=== PATIENT | male | born 2005 | race Caucasian/White ===

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

== ENCOUNTER → 2025-04-23 | Outpatient (CLI) | payer OTHER, SELFPAY ==
--- OUTSIDE RECORDS SUMMARY | 2025-04-23 16:28 | XMS RPT_ITS | CCD ---
Author Organization [facility] Care Team Providers Care Sales And In Home Delivery Specialist Name Role Phone Ziyad Farr MD Primary Care Provider Diego Albarado Attending Unavailable Ziyad Farr Referring Unavailable Ziyad Farr Primary Care Unavailable Keshawn Shay Attending Unavailable Ziyad Farr Referring Unavailable Ziyad Farr Primary Care Unavailable Ziyad Farr MD Primary Care Provider [phone] ZIYAD FARR Attending Unavailable ZIYAD FARR Primary Care Unavailable ZIYAD FARR Attending Unavailable ZIYAD FARR Primary Care Unavailable ZIYAD FARR Attending Unavailable ZIYAD FARR Primary Care Unavailable Allergies Allergy Classification Reported Allergen(s) Allergy Type Date of Onset Reaction(s) Facility (6 sources) Cat; Translations: [CATS] Allergy to substance 11-17-201 0 Unknown [facility] (6 sources) Dog; Translations: [DOGS] Allergy to substance 11-17-201 0 Unknown [facility] (6 sources) Dust; Translations: [DUST] Allergy to substance 11-05-201 0 Hives [facility] Work Phone: (6 sources) House dust mite; Translations: [DUST MITES] Allergy to substance 11-05-201 0 Rash [facility] Work Phone: (8 sources) peanut; Translations: [PEANUTS] Propensity to adverse reactions 8 Anaphylaxis [facility] Work Phone: (5 sources) tree nuts [Other] Propensity to adverse reactions 8 [facility] Work Phone: (1 source) Grass pollen Drug allergy (disorder) 4 [facility] (1 source) peanut allergenic extract Drug Allergy 4 [facility] (4 sources) tree nut, unspecified; Translations: [TREE NUT] Drug allergy (disorder) 4 Anaphylaxis [facility] (1 source) animal dander Drug allergy (disorder) 4 [facility] (1 source) OTHER; Translations: [OTHER] Propensity to adverse reactions (disorder) 8 [facility] Repository Medications Current Medications Medication Drug Class(es) Dates Sig (Normalized) Sig (Original) [id number] 200 actuat albuterol 0.09 mg/actuat metered dose inhaler (7 sources) beta2-Adrenergic Agonist Start: 11-23-2021 take 2 puff(s) by inhalation every four hours as needed for wheezing albuterol HFA (PROVENTIL HFA, VENTOLIN HFA) 90 mcg/actuation inhaler Inhale 2 Puffs as instructed every 4 hours as needed for wheezing/shortness of breath. 2 Inhaler 11/23/2021 Active Comment on above: Inhale 2 Puffs as in structed every 4 hours as needed for wheezing/shortness of breath. 2 ml dupilumab 150 mg/ml auto-injector (7 sources) Interleukin-4 Receptor alpha Antagonist dupilumab (DUPIXENT PEN) 300 mg/2 mL pen Inject subcutaneously every 2 weeks. Active Comment on above: Inject subcutaneousl y every 2 weeks. [id number] 0.3 ml EPINEPHrine 1 mg/ml auto-injector (10 sources) alpha-Adrenergic Agonist, beta-Adrenergic Agonist, Catecholamine Start: 01-12-2021 End: 01-10-2024 EPINEPHrine (EPIPEN 2-RENATE) 0.3 mg/0.3 mL auto-injector Injected the anterior thigh as directed for symptoms according to the allergy action plan. If used the patient must seek emergency medical care. May repeat a second dose after 5 minutes for failure to respond or worsening symptoms while awaiting EMS. Dispense 2 twin packs with trainers 2 Each 1 01/10/2024 Active Comment on above: Injected the anterio r thigh as directed for symptoms according to the allergy action plan. If used the patient must seek emergency medical care. May repeat a second dose after 5 minutes for failure to respond or worsening symptoms while awaiting EMS. Dispensed 2 twin packs with trainers Problems Active Problems Problem Classification Problem Date Documented Date Episodic/Chronic Administrative/social admission (1 source) Encounter for examination for participation in sport; Translations: [Encounter for examination for participation in sport] Onset: 01-01-2024 Episodic Allergic reactions (8 sources) Atopic dermatitis; Translations: [Atopic dermatitis, unspecified] Onset: 04-22-2006 11-23-2018 Chronic Asthma (7 sources) Mild intermittent asthma; Translations: [Mild intermittent asthma, uncomplicated] Onset: 09-25-2012 03-10-2020 Chronic Attention-deficit, conduct, and disruptive behavior disorders (7 sources) Attention deficit hyperactivity disorder, predominantly inattentive type; Translations: [Attention-deficit hyperactivity disorder, predominantly inattentive type] Onset: 03-10-2020 03-10-2020 Chronic Conditions associated with dizziness or vertigo (1 source) Lightheadedness; Translations: [Dizziness and giddiness] 03-31-2024 Episodic Immunizations and screening for infectious disease (3 sources) Patient encounter status; Translations: [Encounter for immunization] Episodic Other ear and sense organ disorders (1 source) Otalgia, right ear; Translations: [Otalgia, unspecified] 09-10-2023 Episodic Other ear and sense organ disorders (1 source) Impacted cerumen in right ear; Translations: [Impacted cerumen, right ear] 09-10-2023 Episodic Other ear and sense organ disorders (1 source) Excessive cerumen in ear canal ; Translations: [Impacted cerumen, right ear] 09-10-2023 Episodic Other upper respiratory disease (7 sources) Allergic rhinitis; Translations: [Allergic rhinitis, unspecified] Onset: 01-13-2013 01-13-2013 Chronic Other upper respiratory infections (1 source) Acute sinusitis, unspecified; Translations: [Acute sinusitis, unspecified] Onset: 01-01-2024 Episodic Otitis media and related conditions (1 source) Otitis media, unspecified, right ear; Translations: [Otitis media, unspecified, right ear] Onset: 01-01-2024 Episodic Past or Other Problems Problem Classification Problem Date Documented Da te Episodic/Chronic Allergic reactions (16 sources) Allergy to peanut; Translations: [Allergy to peanuts] Onset: 12-29-2011 12-29-2011 Episodic Viral infection (2 sources) Molluscum contagiosum infection; Translations: [Molluscum contagiosum] Onset: 12-28-2011 Resolved: 03-10-2020 03-10-2020 Episodic Results Test Name Value Interpretation Reference Range Chrystal Brown 03-31-2024 CNOV Office Visit (PEDSWS ) NICOLE LEE ([id number]) 5 M Date Time Provider Department 03/31/24 3:00 PM ZIYAD FARR PEDSWS During your visit today, we recorded the following information about you: Temperature Pulse Respiration Blood pressure 97.1 degrees 76/minute 16/minute 118/74 Weight Height 102.3 kg 1.777 m Ziyad Farr MD 03/31/2024 4:02 PM Signed Nicole Lee is an 18-year-old male who presents to the office today with complaints of dizziness that is better described as lightheadedness and not spinning that began on March 22, 2024 after the patient went [place]. He states he was bouncing at the trampoline park and after 2 hours developed nausea and dizziness. He denies any head injury. He denies any symptomatology prior. He denies palpitations or racing heart. The episodes of nausea and dizziness are occurring intermittently each day. He also states that if he stands up quickly he feels lightheaded. Again he denies any episodes of vertigo. No previous prodrome of upper respiratory symptoms or vomiting or diarrhea prior to the onset. He denies polydipsia or polyuria. 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), Inattentive Type PAST MEDICAL HISTORY Diagnosis Date Allergy to peanuts Concussion 12/28/14 Constipation Contact dermatitis and other eczema due to other specified agent Molluscum contagiosum 12/28/2011 PAST SURGICAL HISTORY Procedure Laterality Date CIRCUMCISION PAST SURGICAL HISTORY OF HYPOSPADIAS REPAIR ALLERGIES Allergen Reactions Peanuts Anaphylaxis Tree Nut Anaphylaxis 03/31/24 1508 BP: 118/74 Pulse: 76 Resp: 16 Temp: 36.2 ?C (97.1 ?F) TempSrc: Temporal Weight: 102.3 kg (225 lb 9.6 oz) Height: 177.7 cm (5' 9.96) GENERAL: alert and active in no apparent distress, nontoxic-appearing HEAD: Normocephalic, atraumatic EYES: Steady central gaze without nystagmus. No scleral icterus. Conjunctiva are clear without injection or discharge. EARS: External auditory canals are free of lesions bilaterally. Tympanic membranes are intact bilaterally without evidence of fluid in the middle ear space NOSE/SINUSES : Nares normal without discharge OROPHARYNX:moist mucous membranes NECK: Negative for anterior or posterior cervical adenopathy. CARDIOVASCULAR : Regular Rate and Rhythm without murmurs or clicks, well perfused LUNGS: clear to auscultation, excellent air exchange, resonant to percussion, easy respirations without grunting/flaring/retr acting. MUSCULOSKELETAL: Extremities with FROM and no problems identified. EXTREMITIES: Capillary refill is 1 second. No clubbing, cyanosis, or edema. NEUROLOGICAL : Muscle tone normal and Normal age appropriate gait. Face is symmetric. Facial motion is symmetric. Tongue is midline. Rapid altering movements are smooth in the hands without dysdiadochokinesia. Daitga-sk-ykdz to finger is without dysmetria. Heel-to-toe with normal gait. Normal gait without ataxia. Negative Romberg. SKIN : normal color, no jaundice or rash and Normal skin turgor Latest Ref Rng 03/31/2024 GLUCOSE UA (POCT) Negative mg/dL Negative BILIRUBIN UA (POCT) Negative Negative KETONE UA (POCT) Negative mg/dL Negative SPECIFIC GRAVITY UA (POCT) 1.005 - 1.030 >=1.030 HEMOGLOBIN/BLOOD UA (POCT) Negative Negative PH UA (POCT) 4.5 - 8.0 6.0 PROTEIN UA (POCT) Negative mg/dL Negative UROBILINOGEN UA (POCT) Normal E.U./dL 0.2 NITRITE UA (POCT) Negative Negative LEUKOCYTES UA (POCT) Negative Negative COLOR UA (POCT) Yellow CLARITY UA (POCT) Clear Glucose, Point of Care 74 - 99 mg/dL 88 ECG: Normal sinus rhythm ASSESSMENT/PLAN: 1. Intermittent lightheadedness - ICD9: 780.4, ICD10: R42: The patient probably has a spectrum of benign positional vertigo despite the lack of spinning. His ECG shows normal sinus rhythm (pain because of the complaint of lightheadedness but not true history of vertigo) . He is not hyperglycemic and he has no protein in his urine. Recommend the Devika maneuver 3 times daily to both the right and the left side daily until the patient is symptom-free for 24 hours. Handout describing the maneuver was provided. - GLUCOSE, BLOOD (POC) - UA DIP, URINE (POC) - ECG COMPLETE I spent a total of 30 minutes on the date of the service which included preparing to see the patient, esie-yy-[id number] patient care, completing clinical documentation, obtaining and/or reviewing separately obtained history, performing a medically appropriate examination, counseling and educating the patient/family/caregi abiel, and ordering medications, tests, or procedures. Follow-up prn Ziyad Farr MD [facility] Department o (more content not included)... Normal [facility] ECG COMPLETEon 03-31-2024 ECG COMPLETE Ventricular Rate : 6 2 BPM Atrial Rate : 62 BPM P-R Interval : 160 ms QRS Duration : 100 ms Q-T Interval : 368 ms QTC Calculation(Bazett) : 374 ms Calculated P Redford : 47 degrees Calculated R Redford : 24 degrees Calculated T Redford : 22 degrees NORMAL SINUS RHYTHM Confirmed by fellow CAYLA GOLDMAN MD ([id number]) on 04/01/2024 9:05:19 AM Confirmed by MICHAELLE NANCE MD ([id number]) on 04/01/2024 2:12:48 PM NAME : NICOLE LEE PID : [id number] : 2005 Gender : Male Race : ORD : [id number] Procedure Date : Mar 31 2024 15:36:53 Edit Date : Apr 01 2024 14:13:12 Diagnosis: NORMAL SINUS RHYTHM Confirmed by fellow CAYLA GOLDMAN MD ([id number]) on 04/01/2024 9:05:19 AM Confirmed by MICHAELLE NANCE MD ([id number]) on 04/01/2024 2:12:48 PM Test Reason : R42 Intermittent lightheadedness Location : 144 : WOPED Overread By : MICHAELLE NANCE MD Edited By : MICHAELLE NANCE MD Referred By : md wayne Acquired by : Lexi peterson [facility] GLUCOSE, BLOOD (POC)on 03-31 Glucose [Mass/Vol] 88 mg/dL 74 - 99 mg/dL [facility] Comment on above: [facility] [place] [place], [address] The Accu-Chek Inform II glucose meter has not been approved for testing on patients receiving intensive medical intervention or therapy and results from this point of care glucose test should not be used for patient management decisions in these cases. Inaccurate results may also occur from other interfering factors, such as N-acetylcysteine (blood concentrations of greater than 5mg/dL), galactose, extremes of hematocrit (<10 or >65), or high doses of ascorbic acid (vitamin C) greater than 3mg/dL. Consider alternate testing mechanisms (e.g. core lab, blood gas instrument) in the above situations. [facility] UA DIP, URINE (POC)on 2023 BILIRUBIN UA (POCT) Negative Negative [facility] CLARITY UA (POCT) Clear [facility] COLOR UA (POCT) Yellow [facility] GLUCOSE UA (POCT) Negative Negative mg/dL [facility] Hemoglobin Ql (U) Negative Negative [facility] KETONE UA (POCT) Negative Negative mg/dL [facility] LEUKOCYTES UA (POCT) Negative Negative [facility] NITRITE UA (POCT) Negative Negative [facility] PH UA (POCT) 6.0 4.5 - 8.0 [facility] Protein Ql (U) Negative Negative mg/dL [facility] SPECIFIC GRAVITY UA (POCT) >=1.030 1.005 - 1.030 [facility] UROBILINOGEN UA (POCT) 0.2 Normal E.U./dL [facility] Location:[facility], [place], [address] [facility] POINT OF CARE [facility] CNOVon 01-10-2024 CNOV Office Visit (PEDSWS ) NICOLE LEE ([id number]) 5 M Date Time Provider Department 01/10/24 9:30 AM ZIYAD FARR During your visit today, we recorded the following information about you: Temperature Pulse Respiration Blood pressure 97.4 degrees 64/minute 16/minute 118/72 Weight Height 96 kg 1.78 m Ziyad Farr MD 01/10/2024 10:00 AM Addendum 5 to Go!TM Healthy Kids Inside AND Out 5 Eat FIVE fruits and veggies a day 4 Give and get FOUR compliments a day 3 Consume THREE calcium products a day 2 Limit media time to TWO hours a day 1 Get at least ONE hour of exercise a day 0 Consume ZERO sugar-sweetened drinks Go! Be healthy, inside and out! www.[facility].o rg/5toGo Adolescent to Adult Transition Program [facility] cares about helping you and each of our adolescents and young adults make a smooth transition to adult care. If your current doctor is a carpet floor layer apprentice, we will work with you to decide the correct age for moving your care to a doctor or other provider who takes care of adults. We suggest that this move take place before age 22. Our office policy is to prepare you to move to a doctor or other provider who takes care of adults. This includes helping you find a doctor or other provider, sending medical records, and talking about any special needs with the new doctor or other provider. If your current doctor is in family medicine, [facility] will prepare you and your family for the transition to being an adult patient. You will be able to make your own healthcare decisions and will have an adult care team that meets your personal healthcare needs. At age 18, by law, we need your agreement to discuss personal health information with your family. We understand and respect that you may want to include your family in healthcare choices and will partner with you on how and when to include your family in decisions. We will make sure you know what changes to expect. We will also strive to make sure that all care team providers know your needs. We will help you find community resources and specialty care, if needed. Having your information before you come for the first time helps us be sure we do not miss any details. If joining our practice from outside [facility], we will help you request your medical record from past doctor(s) before your first visit. We will make every effort to work with your past providers to ensure a smooth transition and experience. We are always here for you. If you have any questions or concerns, please contact your primary care team or e-mail [email or web address] Got Transition ? is the federally funded national resource center on health care transition (HCT). Its aim is to improve transition from pediatric to adult health care through the use of evidence-driven strategies for health career services assistant, youth, young adults, and their families. www.gottransition.org https://[employer] .org/resource/?hct-fa jose martin-toolkit 5 to Go!TM Healthy Kids Inside AND Out 5 Eat FIVE fruits and veggies a day 4 Give and get FOUR compliments a day 3 Consume THREE calcium products a day 2 Limit media time to TWO hours a day 1 Get at least ONE hour of exercise a day 0 Consume ZERO sugar-sweetened drinks Go! Be healthy, inside and out! www.[facility].o rg/5toGo Adolescent to Adult Transition Program [facility] cares about helping you and each of our adolescents and young adults make a smooth transition to adult care. If your current doctor is a carpet floor layer apprentice, we will work with you to decide the correct age for moving your care to a doctor or other provider who takes care of adults. We suggest that this move take place before age 22. Our office policy is to prepare you to move to a doctor or other provider who takes care of adults. This includes helping you find a doctor or other provider, sending medical records, and talking about any special needs with the new doctor or other provider. If your current doctor is in family medicine, [facility] will prepare you and your family for the transition to being an adult patient. You will be able to make your own healthcare decisions and will have an adult care team that meets your personal healthcare needs. At age 18, by law, we need your agreement to discuss personal health information with your family. We understand and respect that you may want to include your family in healthcare choices and will partner with you on how and when to include your family in decisions. We will make sure you know what changes to expect. We will also strive to make sure that all care team providers know your needs. We will help you find community resources and specialty care, if needed. Having your information before you come for the first time helps us be sure we do not mis (more content not included)... Normal [facility] Urgent Care Visit Reporton 0 12-24-2023 Urgent Care Visit Report [facility] [address], [address] [place] [address] OFFICE VISIT Date of Service: 12/24/23 MR#: [id number] Acct: [id number] Name: NICOLE LEE Rep #: [id number] : 2005 Provider: FARIBA Nix Age/Sex: 18/M Location: [facility] Status: Signed Intake Vital Signs 09/19/22 17:34 12/24/23 11:02 Height 5 ft 11 in 5 ft 10 in Weight: 213 lb BMI 30.5 BP 138/79 H Blood Pressure Location Lt brachial Position Sitting Respiration 18 Pulse 68 Pulse Source Monitor Temp 97.8 F Temp Source Temporal Pulse Oximetry (%) 97 Oxygen Delivery Method room air Intake 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 Corrected vision was seen withinglast year at [facility] Vision screening done both eyes corrected 20/20 not colorblind PFSH Medical History Gastroenteritis Eczema Seasonal allergies Asthma Family History Other Hypertension Social History Smoking Status: Never smoker HPI HPI Details: NICOLE LEE, is a 18 M who presents to the office today for Office Procedures Physical Exam Coding PE Coding Sports/School Physical: Yes Coding Level of Care Code No Charge Diagnoses Routine sports examination Z02.5 CPT Codes PE Coding - Sports/School Physical: Yes (82390) Assessment and Plan Assessment and Plan (1) Routine sports examination: Status: Acute 12/24/23 1138 Date Diego Tapia Signature: Date (if applicable) CC: Normal [facility] CNOVon 09-10-2023 CNOV Office Visit (PEDSWS ) NICOLE LEE ([id number]) 5 M Date Time Provider Department 09/10/23 9:30 AM ZIYAD FARR PEDSWS During your visit today, we recorded the following information about you: Temperature Pulse Respiration Weight 97.5 degrees 68/minute 16/minute 94.9 kg Ziyad Farr MD 09/11/2023 9:11 PM Signed Nicole Ferro Jesus is a 17-year-old male who presents to the office today with complaints of right otalgia. Patient was seen at an outside urgent care ([facility]) on August 29, 2023. Given a diagnosis of of right otitis media and placed on Augmentin. Patient reports compliance with the medication. Still with complaints of intermittent otalgia. No fevers are present. Patient does have a significant history of allergic rhinitis, food allergy, mild intermittent asthma and eczema treated with Dupixent. He denies active symptoms of seasonal allergic rhinitis at this time. 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), Inattentive Type PAST MEDICAL HISTORY Diagnosis Date Allergy to peanuts Concussion 12/28/14 Constipation Contact dermatitis and other eczema due to other specified agent Molluscum contagiosum 12/28/2011 PAST SURGICAL HISTORY Procedure Laterality Date CIRCUMCISION PAST SURGICAL HISTORY OF HYPOSPADIAS REPAIR ALLERGIES Allergen Reactions Cats Unknown Dogs Unknown Dust Hives Dust Mites Rash Peanuts Tree Nuts [Other] 09/10/23 0933 Pulse: 68 Resp: 16 Temp: 36.4 ?C (97.5 ?F) TempSrc: Temporal Weight: 94.9 kg (209 lb 3.2 oz) Physical examination of the head, neck, external ears, mouth and face fail to demonstrate any significant abnormality or assymetry to critical face to face observation. The salivary glands were normal. Facial motion was intact. NOSE: Examination of the nasal chamber revealed no significant abnormalities of the nasal septum, turbinates or meati with the exception of blue boggy turbinates. The mucosa was healthy and the airway was satisfactory MOUTH: Examination of the mouth included the lips, teeth, gums, hard and soft palate, tongue, floor of the mouth, and buccal mucosa were healthy to inspection and the mucosa was moist. OROPHARYNX: Examination of the oropharynx, including the soft palate, tonsillar fossa and posterior pharyngeal cortez were unremarkable and symmetrical. NECK: Inspection and palpation of the neck revealed no scars, masses crepitation or asymmetries. The thyroid was not palpable and was free of masses. EARS: The left external auditory canal is free of lesions. The left tympanic membrane is intact and the middle ear space is well aerated. Tympanogram: Type A pattern. The right external auditory canal has some cerumen at the superior aspect but I can visualize 90% of the tympanic membrane. It is clear without evidence of fluid in the middle ear space. Tympanogram: Type A pattern. ASSESSMENT/PLAN: 1. Otalgia, right - ICD9: 388.70, ICD10: H92.01 (primary diagnosis) If no significant improvement in the discomfort of the ear in the next 5 days would recommend [id number] Flonase, 2 sprays to each nostril once daily, use for 8 weeks. 2. Impacted cerumen of right ear - ICD9: 380.4, ICD10: H61.21 I spent a total of 25 minutes on the date of the service which included preparing to see the patient, [id number] patient care, completing clinical documentation, obtaining and/or reviewing separately obtained history, performing a medically appropriate examination, counseling and educating the patient/family/caregi abiel, and ordering medications, tests, or procedures. Follow-up prn Ziyad Farr MD [facility] Department of Pediatrics, [facility] Allergies As of Date: 09/10/2023 Noted Allergy Reaction CATS 04/12/2010 16 - Unknown DOGS 04/12/2010 16 - Unknown DUST 03/31/2010 4 - Hives DUST MITES 03/31/2010 2 - Rash PEANUTS 01/12/2008 tree nuts [Other] 01/12/2008 Date Reviewed: 09/10/2023 Reviewed by: Hannah Thompson MA - Fully Assessed Reason for Visit: Recheck Ears [Other] Cmt: R ear - finished amoxicillin prescribed by [facility], still having pain. Primary Visit Diagnosis:Otalgia, right [H92.01] Other Visit Diagnoses:Impacted cerumen of right ear [H61.21] Excessive ear wax, right [H61.21] Order(s):A (more content not included)... Normal [facility] Urgent Care Visit Reporton 0 08-29-2023 Urgent Care Visit Report [facility] [address], [address] [place] [address] OFFICE VISIT Date of Service: 08/29/23 MR#: [id number] Acct: [id number] Name: NICOLE LEE Rep #: [id number] 2 : 2005 Provider: FARIBA Blood Age/Sex: 17/M Location: [facility] Status: Signed Intake Vital Signs 09/19/22 17:34 08/29/23 08:17 Height 5 ft 11 in Weight: 213 lb BMI 29.7 BP 118/72 112/68 Blood Pressure Location Lt brachial Lt brachial Position Sitting Sitting Respiration 16 12 Pulse 69 73 Pulse Source Monitor Monitor Temp 98.4 F 98.3 F Temp Source Temporal Temporal Pulse Oximetry (%) 98 98 Oxygen Delivery Method room air room air Intake Visit Reasons: R EAR PAIN Chief Complaint: Right ear pain Allergies animal dander Allergy (Severe, Verified 08/29/23 08:18) unknown grass pollen Allergy (Severe, Verified 08/29/23 08:18) unknown peanut Allergy (Severe, Verified 08/29/23 08:18) unknown tree nut Allergy (Severe, Verified 08/29/23 08:18) NEEDS FOLLOW-UP [facility] Medical History (Updated 08/29/23 @ 08:44 by Keshawn LINK, PA) Asthma Eczema Gastroenteritis Seasonal allergies Family History Other Hypertension Social History Smoking Status: Never smoker HPI HPI Chief Complaint: Right ear pain Details: NICOLE LEE, is a 17 M who presents to the office today for complaint of right ear pain for the past several days. Patient denies otorrhea or hearing change/loss. No fever, chills, sweats. No cough, shortness of breath or difficulty breathing. No other associated symptoms or alleviating/aggravati ng factors. ROS Const Constitutional: No other (As above) Exam Const General: cooperative and well developed HENCO Head: normal to inspection and atraumatic Ears: hearing grossly normal bilaterally and TM abnormal bulging on the right and erythematous on the right Nose: nasal discharge clear Face and sinus: normal facial exam Mouth: oral mucosae normal Throat: abnormal tonsil bilaterally hypertrophy 1+ Resp Effort Inspection: normal respiratory effort and no audible wheezes Auscultation: Bilateral: Clear to Auscultation Cardio Palpation: normal PMI Rate: regular rate Rhythm: regular rhythm Neuro General: patient alert and CN's II-XI intact bilaterally Psych Appearance: grossly normal Mental Status: mental status grossly normal Coding Level of Care Code Off vis,est,level 3 Diagnoses Acute right otitis media H66.91 Assessment and Plan Assessment and Plan (1) Acute right otitis media: Status: Acute Medications: New amoxicillin-pot clavulanate 875-125 mg 1 TAB PO Q12H 10 days 20 tabs 0RF J01.90 - Acute sinusitis, unspecified Plan Augmentin as prescribed today. Encouraged to get plenty of rest, drink lots of clear liquids, and use Tylenol or Ibuprofen (unless contraindicated) for fever and comfort. Patient also educated on other symptomatic management techniques. To be seen in 7-10 days if no improvement; sooner if worsening of symptoms. Patient advised of potential red flags and when appropriate to report to the ED. Patient verbalized understanding and agreement with all the above. 08/29/23 0844 Date Keshawn Tapia Signature: Date (if applicable) CC: Normal [facility] Vital Signs Date Time Vital Sign Value Performing Clinician Rony obrien 03-31-2024 15:08-0500 Body height 177.7 cm Ziyad Farr MD Work Phone: [facility] 03-31-2024 15:08-0500 Body mass index (BMI) [Percentile] Per age and sex 96.8 % Ziyad Farr MD Work Phone: [facility] 03-31-2024 15:08-0500 Body mass index (BMI) [Ratio] 32.41 kg/m2 Ziyad Farr MD Work Phone: [facility] 03-31-2024 15:08-0500 Body temperature 97.11 [degF] Ziyad Farr MD Work Phone: [facility] 03-31-2024 15:08-0500 Body weight 102.33 kg Ziyad Farr MD Work Phone: [facility] 03-31-2024 15:08-0500 Diastolic blood pressure 74 mm[Hg] Ziyad Farr MD Work Phone: [facility] 03-31-2024 15:08-0500 Heart rate 76 /min Ziyad Farr MD Work Phone: [facility] 03-31-2024 15:08-0500 Respiratory rate 16 /min Ziyad Farr MD Work Phone: [facility] 03-31-2024 15:08-0500 Systolic blood pressure 118 mm[Hg] Ziyad Farr MD Work Phone: [facility] 01-10-2024 09:36-0400 Body height 178 cm Ziyad Farr MD Work Phone: [facility] 01-10-2024 09:36-0400 Body mass index (BMI) [Percentile] Per age and sex 95.73 % Ziyad Farr MD Work Phone: [facility] 01-10-2024 09:36-0400 Body mass index (BMI) [Ratio] 30.29 kg/m2 Ziyad Farr MD Work Phone: [facility] 01-10-2024 09:36-0400 Body temperature 97.39 [degF] Ziyad Farr MD Work Phone: [facility] 01-10-2024 09:36-0400 Body weight 95.98 kg Ziyad Farr MD Work Phone: [facility] 01-10-2024 09:36-0400 Diastolic blood pressure 72 mm[Hg] Ziyad Farr MD Work Phone: [facility] 01-10-2024 09:36-0400 Heart rate 64 /min Ziyad Farr MD Work Phone: [facility] 01-10-2024 09:36-0400 Respiratory rate 16 /min Ziyad Farr MD Work Phone: [facility] 01-10-2024 09:36-0400 Systolic blood pressure 118 mm[Hg] Ziyad Farr MD Work Phone: [facility] 09-10-2023 09:33-0400 Body temperature 97.5 [degF] Ziyad Farr MD Work Phone: [facility] 09-10-2023 09:33-0400 Body weight 94.89 kg Ziyad Farr MD Work Phone: [facility] 09-10-2023 09:33-0400 Heart rate 68 /min Ziyad Farr MD Work Phone: [facility] 09-10-2023 09:33-0400 Respiratory rate 16 /min Ziyad Farr MD Work Phone: [facility] 11-06-2022 10:30-0400 Body height 177.6 cm Ziyad Farr MD Work Phone: [facility] 11-06-2022 10:30-0400 Body mass index (BMI) [Percentile] Per age and sex 97.7 % Ziyad Farr MD Work Phone: [facility] 11-06-2022 10:30-0400 Body temperature 97.2 [degF] Ziyad Farr MD Work Phone: [facility] 11-06-2022 10:30-0400 Body weight 97.25 kg Ziyad Farr MD Work Phone: [facility] 11-06-2022 10:30-0400 Diastolic blood pressure 72 mm[Hg] Ziyad Farr MD Work Phone: [facility] 11-06-2022 10:30-0400 Heart rate 80 /min Ziyad Farr MD Work Phone: [facility] 11-06-2022 10:30-0400 Respiratory rate 16 /min Ziyad Farr MD Work Phone: [facility] 11-06-2022 10:30-0400 Systolic blood pressure 116 mm[Hg] Ziyad Farr MD Work Phone: [facility] 11-23-2021 13:05-0400 Body height 176.2 cm Ziyad Farr MD Work Phone: [facility] 11-23-2021 13:05-0400 Body mass index (BMI) [Percentile] Per age and sex 97.61 % Ziyad Farr MD Work Phone: [facility] 11-23-2021 13:05-0400 Body temperature 98.01 [degF] Ziyad Farr MD Work Phone: [facility] 11-23-2021 13:05-0400 Body weight 93.53 kg Ziyad Farr MD Work Phone: [facility] 11-23-2021 13:05-0400 Diastolic blood pressure 64 mm[Hg] Ziyad Farr MD Work Phone: [facility] 11-23-2021 13:05-0400 Heart rate 72 /min Ziyad Farr MD Work Phone: [facility] 11-23-2021 13:05-0400 Respiratory rate 16 /min Ziyad Farr MD Work Phone: [facility] 11-23-2021 13:05-0400 Systolic blood pressure 108 mm[Hg] Ziyad Farr MD Work Phone: [facility] Encounters Encounter Date Encounter Type Care Provider Facility Start: 03-31-2024 End: 03-31-2024 ambulatory ZIYAD FARR Facility:[facility] Start: 03-31-2024 End: 03-31-2024 Patient encounter procedure Ziyad Farr MD Work Phone: [facility] Comment on above: Intermittent lighthe adedness (Primary Dx) Start: 01-10-2024 End: 01-10-2024 ambulatory ZIYAD FARR Facility:[facility] Start: 01-10-2024 Encounter for routin e child health examination without abnormal findings ZIYAD FARR [facility] Start: 01-10-2024 End: 01-10-2024 Patient encounter procedure Ziyad Farr MD Work Phone: [facility] [place] [facility] Comment on above: Encounter for genera l adult medical examination without abnormal findings (Primary Dx); Encounter for screening for depression; Peanut allergy; Tree nut allergy Start: 01-10-2024 End: 01-10-2024 Patient encounter status Ziyad Farr MD Work Phone: [facility] Work Phone: Start: 12-24-2023 End: 12-24-2023 ambulatory Diego LINK Facility:[facility] Start: 09-10-2023 End: 09-10-2023 ambulatory ZIYAD FARR Facility:[facility] Start: 09-10-2023 End: 09-10-2023 Patient encounter procedure Ziyad Farr MD Work Phone: [facility] [place] Comment on above: Otalgia, right (Prim chencho Dx); Impacted cerumen of right ear; Excessive ear wax, right Start: 08-29-2023 End: 08-29-2023 ambulatory Keshawn LINK Facility:[facility] Start: 11-06-2022 End: 11-06-2022 Patient encounter procedure Ziyad Farr MD Work Phone: [facility] [place] Comment on above: Encounter for routin e child health examination w/o abnormal findings (Primary Dx); Encounter for immunization; Screening for depression Start: 11-06-2022 End: 11-06-2022 Patient encounter status Ziyad Farr MD Work Phone: [facility] [place] Start: 08-24-2022 Telephone encounter Ziyad rowland MD Work Phone: [facility] [place] Comment on above: Referral Information Start: 06-19-2022 Telephone encounter Ziyad rowland MD Work Phone: [facility] Comment on above: Referral Request Start: 11-23-2021 End: 11-23-2021 Patient encounter procedure Ziyad Farr MD Work Phone: [facility] [place] [facility] Comment on above: Encounter for routin e child health examination w/o abnormal findings (Primary Dx) Start: 11-23-2021 End: 11-23-2021 Patient encounter status Ziyad Farr MD Work Phone: [facility] [place] Procedures Date Procedure Procedure Detail Performing Clinician Start: 03-31-2024 Ecg routine ecg w/le ast 12 lds i&r only [facility] Provider Start: 03-31-2024 Urnls dip stick/tabl et rgnt auto w/o microscopy Ziyad Farr MD Work Phone: Start: 03-31-2024 Gluc bld gluc mntr d ev cleared fda spec home use Ziyad Farr MD Work Phone: Start: 01-10-2024 Adult depression screening assessment Ziyad Farr MD Work Phone: Start: 11-06-2022 Menacwy-tt conj vacc serogroups acwy for im use Ziyad Farr MD Work Phone: Start: 11-06-2022 Adult depression screening assessment Ziyad Farr MD Work Phone: Start: 11-23-2021 Adult depression screening assessment Ziyad Farr MD Work Phone: Plan of Treatment Date Care Activity Detail Author Start: 04-19-2027 Urine microalbumin profile [facility] Start: 01-09-2026 Asthma Action Plan Asthma Action Mery n [facility] Start: 03-31-2025 Annual PCP Team Operations Clerk nayana Disease Visit Annual PCP Team Chronic Disease Visit [facility] Start: 01-11-2025 End: 01-11-2025 Patient encounter procedure 01/11/2025 9:30 AM EDT Office Visit [facility] [address] [place], [place] [id number] Ziyad Farr MD [address] [facility] [place] [id number] [facility] [place] Comment on above: 19 [address] [facility] Start: 01-09-2025 Annual PCP Team Operations Clerk nayana Disease Visit Annual PCP Team Chronic Disease Visit [facility] Start: 01-09-2025 Anxiety Screening Anxiety Screening [facility] Start: 01-09-2025 Asthma Control Test Asthma Control T est [facility] Start: 01-09-2025 Depression Screening Depression Scre [facility] Start: 01-26-2024 Covid-19 Vaccine () Covid-19 Vaccine () [facility] Start: 01-26-2024 Influenza vaccination [facility] Start: 11-24-2023 ASTHMA ACTION PLAN ASTHMA ACTION MERY N [facility] Start: 11-14-2023 Anxiety Screening Anxiety Screening [facility] Start: 11-14-2023 Depression Screening Depression Scre [facility] Start: 11-14-2023 [facility] Start: 11-14-2023 HIV screening HIV Screening [facility] Start: 11-07-2023 Adult depression screening assessment DEPRESSION SCREENING [facility] Start: 11-07-2023 ASTHMA CONTROL TEST ASTHMA CONTROL T EST [facility] Start: 01-25-2023 Covid-19 Vaccine ( season) Covid-19 Vaccine () [facility] Start: 01-25-2023 Influenza vaccination INFLUENZ A (Season Ended) [facility] Start: 11-23-2022 Adult depression screening assessment DEPRESSION SCREENING [facility] Start: 11-23-2022 ASTHMA CONTROL TEST ASTHMA CONTROL T EST [facility] Start: 01-25-2022 Influenza vaccination [facility] Start: 2021 Meningococcal B Vacc ine: Consider Based On Risk (1 of 2 - Patient Seeks Protection) Meningococcal B Vaccine: Consider Based On Risk (1 of 2 - Patient Seeks Protection) [facility] Start: 2021 MENINGOCOCCAL CONJUG ATE (2 - 2-dose series) MENINGOCOCCAL CONJUGATE (2 - 2-dose series) [facility] Start: 11-14-2019 PEDS TO ADULT TRANSI TION ANNUAL ASSESSMENT PEDS TO ADULT TRANSITION ANNUAL ASSESSMENT [facility] Start: 11-14-2015 MENINGOCOCCAL B: Consider based on risk (1 of 2 - Risk Bexsero 2-dose series) MENINGOCOCCAL B: Consider based on risk (1 of 2 - Risk Bexsero 2-dose series) [facility] Start: 03-31-2012 VARICELLA (2 of 2 - 2-dose childhood series) VARICELLA (2 of 2 - 2-dose childhood series) [facility] Start: 03-31-2012 Varicella Vaccine (2 of 2 - 2-dose childhood series) Varicella Vaccine (2 of 2 - 2-dose childhood series) [facility] Start: 05-15-2006 COVID-19 VACCINE (#1) COVID-19 VACCI NE (#1) [facility] ECG COMPLETE [facility] Work Phone: Comment on above: Ordered: 03/31/2024 Removal impacted cer umen irrigation/lvg unilat AMBULATORY EAR LAVAGE/IRRIGATION Procedures Routine Excessive ear wax, right Ordered: 09/10/2023 [facility] Work Phone: Comment on above: Ordered: 09/10/2023 Immunizations Immunization Date Immunization Notes Care Provider Hollie navarro 11-06-2022 meningococcal (MenACWY-TT) vaccine, quadrivalent (MENQUADFI) Ziyad Farr MD Work Phone: [facility] 02-19-2018 Human Papillomavirus 9-valent vaccine Ziyad Farr MD Work Phone: [facility] 02-19-2018 influenza, injectabl e, quadrivalent, contains preservative Ziyad Farr MD Work Phone: [facility] 02-19-2018 meningococcal polysaccharide (groups A, C, Y and W-135) diphtheria toxoid conjugate vaccine (MCV4P) Ziyad Farr MD Work Phone: [facility] 02-19-2018 influenza virus vacc ine, unspecified formulation Ziyad Farr MD Work Phone: [facility] 04-19-2017 Human Papillomavirus 9-valent vaccine Ziyad Farr MD Work Phone: [facility] 04-19-2017 tetanus toxoid, redu grecia diphtheria toxoid, and acellular pertussis vaccine, adsorbed Ziyad Farr MD Work Phone: [facility] 03-24-2014 influenza, seasonal, injectable Ziyad Farr MD Work Phone: [facility] Work Phone: 02-23-2012 influenza virus vacc ine, live, attenuated, for intranasal use Ziyad Farr MD Work Phone: [facility] 01-07-2012 varicella virus vaccine Ziyad Farr MD Work Phone: [facility] 12-28-2011 diphtheria, tetanus toxoids and acellular pertussis vaccine Ziyad Farr MD Work Phone: [facility] 12-28-2011 measles, mumps and rubella virus vaccine Ziyad Farr MD Work Phone: [facility] 12-28-2011 poliovirus vaccine, inactivated Ziyad Farr MD Work Phone: [facility] 04-17-2011 influenza virus vacc ine, live, attenuated, for intranasal use Ziyad Farr MD Work Phone: [facility] 05-29-2010 influenza virus vacc ine, live, attenuated, for intranasal use Ziyad Farr MD Work Phone: [facility] 03-16-2009 influenza virus vacc ine, unspecified formulation Ziyad Farr MD Work Phone: [facility] Work Phone: 04-20-2008 influenza virus vacc ine, live, attenuated, for intranasal use Ziyad Farr MD Work Phone: [facility] Work Phone: 03-31-2007 diphtheria, tetanus toxoids and acellular pertussis vaccine Ziyad Farr MD Work Phone: [facility] Work Phone: 03-31-2007 haemophilus influenz ae type b vaccine, HbOC conjugate Ziyad Farr MD Work Phone: [facility] Work Phone: 03-31-2007 influenza virus vacc ine, unspecified formulation Ziyad Farr MD Work Phone: [facility] Work Phone: 12-03-2006 measles, mumps, rube lla, and varicella virus vaccine Ziyad Farr MD Work Phone: [facility] Work Phone: 12-03-2006 pneumococcal conjuga te vaccine, 7 valent Ziyad Farr MD Work Phone: [facility] Work Phone: 06-01-2006 DTaP-hepatitis B and poliovirus vaccine Ziyad Farr MD Work Phone: [facility] Work Phone: 06-01-2006 haemophilus influenz ae type b vaccine, HbOC conjugate Ziyad Farr MD Work Phone: [facility] Work Phone: 06-01-2006 influenza virus vacc ine, unspecified formulation Ziyad Farr MD Work Phone: [facility] Work Phone: 06-01-2006 pneumococcal conjuga te vaccine, 7 valent Ziyad Farr MD Work Phone: [facility] Work Phone: 03-22-2006 DTaP-hepatitis B and poliovirus vaccine Ziyad Farr MD Work Phone: [facility] 03-22-2006 haemophilus influenz ae type b vaccine, HbOC conjugate Ziyad Farr MD Work Phone: [facility] 03-22-2006 pneumococcal conjuga te vaccine, 7 valent Ziyad Farr MD Work Phone: [facility] 01-14-2006 DTaP-hepatitis B and poliovirus vaccine Ziyad Farr MD Work Phone: [facility] 01-14-2006 haemophilus influenz ae type b vaccine, HbOC conjugate Ziyad Farr MD Work Phone: [facility] 01-14-2006 pneumococcal conjuga te vaccine, 7 valent Ziyad Farr MD Work Phone: [facility] 2005 hepatitis B vaccine, pediatric or pediatric/adolescent dosage Ziyad Farr MD Work Phone: [facility] Work Phone: Payers Date Payer Category Payer Self-pay 2022 Unknown MMO MMO [employer] PPO [id number] 2022-Present [phone] [address] [place] [address] PPO [id number] 2022 Unknown [id number] 2022 [facility] [id number] 2022-Present [phone] [address] [place] [address] PPO [id number] 2022 Private Health Insurance [id number] 2019 Unknown MMO MMO [employer] [id number] 2019-Present [address] [place] [address] PPO [id number] Unknown [id number] Unknown [id number] Social History Date Type Detail Facility Start: [facility]12-[facility] Start: 11-23-2021 End: 03-31-2024 Alcohol intake Current non-drinker of alcohol (finding) [facility] Start: 2005 Sex Assigned At Not on file [facility] Start: 2021 End: 11-23-2021 Exposure to SARS-CoV-2 (event) Not sure [facility] Start: 04-12-2011 Tobacco use and exposure Smoke less tobacco non-user [facility] Start: 05-01-2020 End: 09-10-2023 History of Social function [facility] Start: 05-01-2020 End: 09-10-2023 Tobacco use panel [facility] National Score (1-10 0), lower number is lower risk Not on file [facility] Clinical Notes 12-28-2011 to 03-31-2024 Ziyad Farr MD - 03/31/2024 3:54 PM ESTSZiyad michael MD - 01/10/2024 9:32 AM EDTPatient InstructionsStronZiyad fried MD - 09/10/2023 9:45 AM EDTPatient InstructionsPatient Instructions Note Date & Type Note Facility 03-31-2024 Note HNO ID: [id number] Author: ZIYAD FARR MD Service: ? Author Type: Physician Type: Progress Notes Filed: 03/31/2024 16:02 Note Text: Nicole Lee is an 18-year-old male who presents to the office today with complaints of dizziness that is better described as lightheadedness and not spinning that began on March 22, 2024 after the patient went to a [employer] park. He states he was bouncing at the [employer] park and after 2 hours developed nausea and dizziness. He denies any head injury. He denies any symptomatology prior. He denies palpitations or racing heart. The episodes of nausea and dizziness are occurring intermittently each day. He also states that if he stands up quickly he feels lightheaded. Again he denies any episodes of vertigo. No previous prodrome of upper respiratory symptoms or vomiting or diarrhea prior to the onset. He denies polydipsia or polyuria. 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), Inattentive Type PAST MEDICAL HISTORY Diagnosis Date Allergy to peanuts Concussion 12/28/14 Constipation Contact dermatitis and other eczema due to other specified agent Molluscum contagiosum 12/28/2011 PAST SURGICAL HISTORY Procedure Laterality Date CIRCUMCISION PAST SURGICAL HISTORY OF HYPOSPADIAS REPAIR ALLERGIES Allergen Reactions Peanuts Anaphylaxis Tree Nut Anaphylaxis 03/31/24 1508 BP: 118/74 Pulse: 76 Resp: 16 Temp: 36.2 ?C (97.1 ?F) TempSrc: Temporal Weight: 102.3 kg (225 lb 9.6 oz) Height: 177.7 cm (5' 9.96) GENERAL: alert and active in no apparent distress, nontoxic-appearing HEAD: Normocephalic, atraumatic EYES: Steady central gaze without nystagmus. No scleral icterus. Conjunctiva are clear without injection or discharge. EARS: External auditory canals are free of lesions bilaterally. Tympanic membranes are intact bilaterally without evidence of fluid in the middle ear space NOSE/SINUSES : Nares normal without discharge OROPHARYNX:moist mucous membranes NECK: Negative for anterior or posterior cervical adenopathy. CARDIOVASCULAR : Regular Rate and Rhythm without murmurs or clicks, well perfused LUNGS: clear to auscultation, excellent air exchange, resonant to percussion, easy respirations without grunting/flaring/retracting. MUSCULOSKELETAL: Extremities with FROM and no problems identified. EXTREMITIES: Capillary refill is 1 second. No clubbing, cyanosis, or edema. NEUROLOGICAL : Muscle tone normal and Normal age appropriate gait. Face is symmetric. Facial motion is symmetric. Tongue is midline. Rapid altering movements are smooth in the hands without dysdiadochokinesia. [id number] to finger is without dysmetria. Heel-to-toe with normal gait. Normal gait without ataxia. Negative Romberg. SKIN : normal color, no jaundice or rash and Normal skin turgor Latest Ref Rng 03/31/2024 GLUCOSE UA (POCT) Negative mg/dL Negative BILIRUBIN UA (POCT) Negative Negative KETONE UA (POCT) Negative mg/dL Negative SPECIFIC GRAVITY UA (POCT) 1.005 - 1.030 >=1.030 HEMOGLOBIN/BLOOD UA (POCT) Negative Negative PH UA (POCT) 4.5 - 8.0 6.0 PROTEIN UA (POCT) Negative mg/dL Negative UROBILINOGEN UA (POCT) Normal E.U./dL 0.2 NITRITE UA (POCT) Negative Negative LEUKOCYTES UA (POCT) Negative Negative COLOR UA (POCT) Yellow CLARITY UA (POCT) Clear Glucose, Point of Care 74 - 99 mg/dL 88 ECG: Normal sinus rhythm ASSESSMENT/PLAN: 1. Intermittent lightheadedness - ICD9: 780.4, ICD10: R42: The patient probably has a spectrum of benign positional vertigo despite the lack of spinning. His ECG shows normal sinus rhythm (pain because of the complaint of lightheadedness but not true history of vertigo) . He is not hyperglycemic and he has no protein in his urine. Recommend the Devika maneuver 3 times daily to both the right and the left side daily until the patient is symptom-free for 24 hours. Handout describing the maneuver was provided. - GLUCOSE, BLOOD (POC) - UA DIP, URINE (POC) - ECG COMPLETE I spent a total of 30 minutes on the date of the service which included preparing to see the patient, ksil-cb-[id number] patient care, completing clinical documentation, obtaining and/or reviewing separately obtained history, performing a medically appropriate examination, counseling and educating the patient/family/caregiver, and ordering medications, tests, or procedures. Follow-up prantonella Farr MD [facility] Department of Pediatrics, [facility] 03-31-2024 History of Present illness Narrative Nicole Lee is an 18-year-old male who presents to the office today with complaints of dizziness that is better described as lightheadedness and not spinning that began on March 22, 2024 [place] He states [place] bouncing [place] [employer] [place] and after 2 hours developed nausea and dizziness. He denies any head injury. He denies any symptomatology prior. He denies palpitations or racing heart. The episodes of nausea and dizziness are occurring intermittently each day. He also states that if he stands up quickly he feels lightheaded. Again he denies any episodes of vertigo. No previous prodrome of upper respiratory symptoms or vomiting or diarrhea prior to the onset. He denies polydipsia or polyuria. 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), Inattentive Type PAST MEDICAL HISTORY Diagnosis Date Allergy to peanuts Concussion 12/28/14 Constipation Contact dermatitis and other eczema due to other specified agent Molluscum contagiosum 12/28/2011 PAST SURGICAL HISTORY Procedure Laterality Date CIRCUMCISION PAST SURGICAL HISTORY OF HYPOSPADIAS REPAIR ALLERGIES Allergen Reactions Peanuts Anaphylaxis Tree Nut Anaphylaxis 03/31/24 1508 BP: 118/74 Pulse: 76 Resp: 16 Temp: 36.2 C (97.1 F) TempSrc: Temporal Weight: 102.3 kg (225 lb 9.6 oz) Height: 177.7 cm (5' 9.96) GENERAL: alert and active in no apparent distress, nontoxic-appearing HEAD: Normocephalic, atraumatic EYES: Steady central gaze without nystagmus. No scleral icterus. Conjunctiva are clear without injection or discharge. EARS: External auditory canals are free of lesions bilaterally. Tympanic membranes are intact bilaterally without evidence of fluid in the middle ear space NOSE/SINUSES : Nares normal without discharge OROPHARYNX:moist mucous membranes NECK: Negative for anterior or posterior cervical adenopathy. CARDIOVASCULAR : Regular Rate and Rhythm without murmurs or clicks, well perfused LUNGS: clear to auscultation, excellent air exchange, resonant to percussion, easy respirations without grunting/flaring/retracting. MUSCULOSKELETAL: Extremities with FROM and no problems identified. EXTREMITIES: Capillary refill is 1 second. No clubbing, cyanosis, or edema. NEUROLOGICAL : Muscle tone normal and Normal age appropriate gait. Face is symmetric. Facial motion is symmetric. Tongue is midline. Rapid altering movements are smooth in the hands without dysdiadochokinesia. [id number]-hv-[id number] to finger is without dysmetria. Heel-to-toe with normal gait. Normal gait without ataxia. Negative Romberg. SKIN : normal color, no jaundice or rash and Normal skin turgor Latest Ref Rng 03/31/2024 GLUCOSE UA (POCT) Negative mg/dL Negative BILIRUBIN UA (POCT) Negative Negative KETONE UA (POCT) Negative mg/dL Negative SPECIFIC GRAVITY UA (POCT) 1.005 - 1.030 >=1.030 HEMOGLOBIN/BLOOD UA (POCT) Negative Negative PH UA (POCT) 4.5 - 8.0 6.0 PROTEIN UA (POCT) Negative mg/dL Negative UROBILINOGEN UA (POCT) Normal E.U./dL 0.2 NITRITE UA (POCT) Negative Negative LEUKOCYTES UA (POCT) Negative Negative COLOR UA (POCT) Yellow CLARITY UA (POCT) Clear Glucose, Point of Care 74 - 99 mg/dL 88 ECG: Normal sinus rhythm ASSESSMENT/PLAN: 1. Intermittent lightheadedness - ICD9: 780.4, ICD10: R42: The patient probably has a spectrum of benign positional vertigo despite the lack of spinning. His ECG shows normal sinus rhythm (pain because of the complaint of lightheadedness but not true history of vertigo) . He is not hyperglycemic and he has no protein in his urine. Recommend the Devika maneuver 3 times daily to both the right and the left side daily until the patient is symptom-free for 24 hours. Handout describing the maneuver was provided. - GLUCOSE, BLOOD (POC) - UA DIP, URINE (POC) - ECG COMPLETE I spent a total of 30 minutes on the date of the service which included preparing to see the patient, [id number] patient care, completing clinical documentation, obtaining and/or reviewing separately obtained history, performing a medically appropriate examination, counseling and educating the patient/family/caregiver, and ordering medications, tests, or procedures. Follow-up prn Ziyad Farr MD [facility] Department of Pediatrics, [facility] documented in this encounter [facility] 01-10-2024 Note HNO ID: [id number] Author: ZIYAD FARR MD Service: ? Author Type: Physician Type: Progress Notes Filed: 01/10/2024 13:08 Note Text: WELL VISIT PEDIATRIC 18+YRS OLD Nicole is a 18 year old who presents today for well exam. 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 Comment: PistachioDannie, hazelnut Allergic Rhinitis, Cause Unspecified - 01/13/2013 Mild Intermittent Asthma Without Complication - 09/25/2012 Peanut Allergy - 12/29/2011 Atopic Dermatitis and Related Condition - 04/22/2006 PAST MEDICAL HISTORY No date: Allergy to peanuts 12/28/14: Concussion No date: Constipation No date: Contact dermatitis and other eczema due to other specified agent 12/28/2011: Molluscum contagiosum PAST SURGICAL HISTORY No date: CIRCUMCISION No date: PAST SURGICAL HISTORY OF Comment: HYPOSPADIAS REPAIR ALLERGIES Allergen Reactions Cats Unknown Dogs Unknown Dust Hives Dust Mites Rash Peanuts Tree Nuts [Other] Medications: albuterol HFA (PROVENTIL HFA, VENTOLIN HFA) 90 mcg/actuation inhaler Inhale 2 Puffs as instructed every 4 hours as needed for wheezing/shortness of breath. dupilumab (DUPIXENT PEN) 300 mg/2 mL pen Inject subcutaneously every 2 weeks. EPINEPHrine (EPIPEN 2-RENATE) 0.3 mg/0.3 mL auto-injector Injected the anterior thigh as directed for symptoms according to the allergy action plan. If used the patient must seek emergency medical care. May repeat a second dose after 5 minutes for failure to respond or worsening symptoms while awaiting EMS. Dispensed 2 twin packs with trainers FAMILY HISTORY Problem Relation Age of Onset other (eczema) Mother other (eczema) Father other (hepatitis C) Maternal Grandmother Cancer Maternal Grandfather skin other (hepatitis C) Maternal Grandfather Heart Other maternal cousin congenital heart defect - down's syndrome Social History Social History Narrative Not on file Smoking Exposure: Do you spend a significant amount of time with anyone who smokes? No School: Presently in 12th grade. Any concerns regarding peer interactions? No Recreational Screen Time totaling more than 2 hours of screen time per day. Physical Activity: more than 1 hour of physical activity per day Fainting, dizziness, significant shortness of breath or chest pain with sports or exercise: No History of concussion in the last year: No Safety: Reviewed seat belts and bike helmets Diet: -Diet is well balanced and appropriate for age -Fruits are eaten with most meals -Vegetables are eaten with most meals -Regularly eats meals with family Elimination: no concerns, normal size and consistency Dental: dental care current Sleep: -no sleep concerns Vision: No vision concerns Hearing: No hearing concerns Growth: No growth concerns Substance use: none Sexual History: Attraction: female Sexually Active: No Body image: satisfactory Screening tools reviewed and discussed with patient/[id number]-[id number]-4 and PHQ-9. Please see Patient Entered Data. OBJECTIVE Physical Exam: BP 118/72 Pulse 64 Temp 36.3 ?C (97.4 ?F) (Temporal) Resp 16 Ht 178 cm (5' 10.08) Wt 96 kg (211 lb 9.6 oz) BMI 30.29 kg/m? Body mass index is 30.29 kg/m?. General: alert and active in no apparent distress Head: Normocephalic, atraumatic Eyes: Conjunctiva clear without injection or discharge. No scleral icterus is present. Ears: External ears normal. Canals clear. Tympanic membranes are intact bilaterally without evidence of fluid in the middle ear space Nose/Sinuses: Nares normal. Septum midline. Mucosa normal. No drainage or sinus tenderness. Oropharynx: Tonsils are 1+. Uvula is midline and the oropharynx is symmetrical Neck: No masses and the suprasternal notch, no supraclavicular adenopathy, supple, no adenopathy Thyroid: no masses or nodules present Heart: Regular Rate and Rhythm without murmurs or clicks, femoral and radial pulses are normal.PMI normal Lungs: clear to auscultation. No wheezes or rales.Chest AP diameter normal. Abdomen: Abdomen is soft, nontender, without organomegaly or masses. Musculoskeletal: Extremities with FROM and no problems identified. Bilateral shoulder, elbow and wrist exams are within normal limits. Bilateral hip, knee and ankle examinations are within normal limits. Neurological: Muscle tone normal, Awake, alert and oriented x 3, Cranial nerves II-XII grossly intact, Normal age appropriate gait, muscle tone normal, muscle strength 5/5 in the upper and lower extremities bilaterally and symmetrically, rapid alternating movements smooth in the hands without evidence of dysdiadochokinesia Skin: Diffusely dry skin especially on the arms, hands and face. ASSESSMENT: 18 year old Well exam ACTIVE PROBLEM LIST Atopic Dermatitis and Related Con (more content not included)... [facility] 01-10-2024 History of Present illness Narrative WELL VISIT PEDIATRIC 18+YRS OLD Nicole is a 18 year old who presents today for well exam. 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 Comment: Pistachio, Allmond, hazelnut Allergic Rhinitis, Cause Unspecified - 01/13/2013 Mild Intermittent Asthma Without Complication - 09/25/2012 Peanut Allergy - 12/29/2011 Atopic Dermatitis and Related Condition - 04/22/2006 PAST MEDICAL HISTORY No date: Allergy to peanuts 12/28/14: Concussion No date: Constipation No date: Contact dermatitis and other eczema due to other specified agent 12/28/2011: Molluscum contagiosum PAST SURGICAL HISTORY No date: CIRCUMCISION No date: PAST SURGICAL HISTORY OF Comment: HYPOSPADIAS REPAIR ALLERGIES Allergen Reactions Cats Unknown Dogs Unknown Dust Hives Dust Mites Rash Peanuts Tree Nuts [Other] Medications: albuterol HFA (PROVENTIL HFA, VENTOLIN HFA) 90 mcg/actuation inhaler Inhale 2 Puffs as instructed every 4 hours as needed for wheezing/shortness of breath. dupilumab (DUPIXENT PEN) 300 mg/2 mL pen Inject subcutaneously every 2 weeks. EPINEPHrine (EPIPEN 2-RENATE) 0.3 mg/0.3 mL auto-injector Injected the anterior thigh as directed for symptoms according to the allergy action plan. If used the patient must seek emergency medical care. May repeat a second dose after 5 minutes for failure to respond or worsening symptoms while awaiting EMS. Dispensed 2 twin packs with trainers FAMILY HISTORY Problem Relation Age of Onset other (eczema) Mother other (eczema) Father other (hepatitis C) Maternal Grandmother Cancer Maternal Grandfather skin other (hepatitis C) Maternal Grandfather Heart Other maternal cousin congenital heart defect - down's syndrome Social History Social History Narrative Not on file Smoking Exposure: Do you spend a significant amount of time with anyone who smokes? No School: Presently in 12th grade. Any concerns regarding peer interactions? No Recreational Screen Time totaling more than 2 hours of screen time per day. Physical Activity: more than 1 hour of physical activity per day Fainting, dizziness, significant shortness of breath or chest pain with sports or exercise: No History of concussion in the last year: No Safety: Reviewed seat belts and bike helmets Diet: -Diet is well balanced and appropriate for age -Fruits are eaten with most meals -Vegetables are eaten with most meals -Regularly eats meals with family Elimination: no concerns, normal size and consistency Dental: dental care current Sleep: -no sleep concerns Vision: No vision concerns Hearing: No hearing concerns Growth: No growth concerns Substance use: none Sexual History: Attraction: female Sexually Active: No Body image: satisfactory Screening tools reviewed and discussed with patient/[id number]-TAH-5 and PHQ-9. Please see Patient Entered Data. OBJECTIVE Physical Exam: BP 118/72 Pulse 64 Temp 36.3 C (97.4 F) (Temporal) Resp 16 Ht 178 cm (5' 10.08) Wt 96 kg (211 lb 9.6 oz) BMI 30.29 kg/m Body mass index is 30.29 kg/m . General: alert and active in no apparent distress Head: Normocephalic, atraumatic Eyes: Conjunctiva clear without injection or discharge. No scleral icterus is present. Ears: External ears normal. Canals clear. Tympanic membranes are intact bilaterally without evidence of fluid in the middle ear space Nose/Sinuses: Nares normal. Septum midline. Mucosa normal. No drainage or sinus tenderness. Oropharynx: Tonsils are 1+. Uvula is midline and the oropharynx is symmetrical Neck: No masses and the suprasternal notch, no supraclavicular adenopathy, supple, no adenopathy Thyroid: no masses or nodules present Heart: Regular Rate and Rhythm without murmurs or clicks, femoral and radial pulses are normal.PMI normal Lungs: clear to auscultation. No wheezes or rales.Chest AP diameter normal. Abdomen: Abdomen is soft, nontender, without organomegaly or masses. Musculoskeletal: Extremities with FROM and no problems identified. Bilateral shoulder, elbow and wrist exams are within normal limits. Bilateral hip, knee and ankle examinations are within normal limits. Neurological: Muscle tone normal, Awake, alert and oriented x 3, Cranial nerves II-XII grossly intact, Normal age appropriate gait, muscle tone normal, muscle strength 5/5 in the upper and lower extremities bilaterally and symmetrically, rapid alternating movements smooth in the hands without evidence of dysdiadochokinesia Skin: Diffusely dry skin especially on the arms, hands and face. ASSESSMENT: 18 year old Well exam ACTIVE PROBLEM LIST Atopic Dermatitis and Related Condition: Treated with Dupixent. Managed by outside dermatology, Dr. Nelson SacramentoMaeylin Peanut Allergy: Action plan created and reviewed. Epinephrine renewed Mild Intermittent Asthma Without Complication: Reviewed albuterol use Allergic Rhinitis, Cause Unspecified Tree Nut Allergy: Action plan created and reviewed. Epinephrine renewed Adhd (Attention Deficit Hyperactivity Disorder), Inattentive Type PLAN: 1) Plan per orders. Office Visit on 01/10/24 EPINEPHrine (EPIPEN 2-RENATE) 0.3 mg/0.3 mL auto-injector Signs you have good asthma control Your asthma is under control if: You have daytime symptoms no more than 2 times a week. You don't miss school or work because of asthma symptoms. Your asthma doesn t get in the way of exercise and physical activity. Symptoms disturb your sleep less than or equal to 2 nights per month, or not at all. You need your rescue medicine ( albuterol or Xopenex) less than or equal to 2 times per week times a week. This excludes use for prevention of exercise symptoms. Signs your asthma is not controlled Your asthma is out of control if: You wake up at night because of coughing, wheezing or feeling short of breath more than twice a month. Your rescue medicine doesn't work quickly or completely to relieve your asthma symptoms. You are using your rescue medicine (albuterol or Xopenex) more than twice a week excluding prevention of exercise induced symptoms. Your asthma symptoms are stopping you from doing regular activities like exercise. Remember, you need a yearly flu vaccine. 2) Hearing and Vision if done at the visit was discussed and reviewed with the patient and family. 3) Questionnaires, if administered at the office today, were reviewed with the patient and family. 4) Growth curves including BMI were reviewed with the patient. Education regarding BMI, its meaning utility and limitations were discussed in the office today. If the BMI was elevated, we discussed interventions. 5) Counseling: See patient instruction section 6) Follow up every 1 year for well exam and PRN. Encounter Diagnosis ICD-10-CM 1. Encounter for routine child health examination w/o abnormal findings Z00.129 2. Encounter for screening for depression Z13.31 Based on PHQ-9 Score: 1 and interview, presentation is not consistent with depression. Based on RAFAELA-7 Score: 0 and interview, no further action needed. - Discussed diet and safety. - Dental care discussed. - Bright Futures handout given (See Patient Instructions). - No immunizations were recommended to be given at this visit. - Nicole is Cleared for all sports without restriction. If conditions arise after the athlete has been cleared for participation the provider may rescind the medical eligibility. - Healthcare transition statement discussed.. - Follow up in one year for routine physical. ASTHMA CONTROL TEST Date: 01/10/2024 In the last 4 weeks, how much of the time did your asthma keep you from getting as much done at work or home that you wanted to do? None of the time (5) In the last 4 weeks, how often have you had shortness of breath? Not at all (5) In the last 4 weeks, how often did your asthma symptoms (wheezing, coughing, shortness of breath, chest tightness or pain) wake you up at night or earlier than usual? Not at all (5) In the last 4 weeks, how often have you used your rescue inhaler or nebulizer medication (such as Albuterol, Proventil, Ventolin, Maxair, Xoponex, or Primatene Mist)? Not at all (5) In the last 4 weeks, how would you rate your asthma control? Completely controlled (5) Total: 25 documented in this encounter [facility] 01-10-2024 Instructions Ziyad Farr MD - 01/10/2024 9:32 AM EDT Images from the original note were not included. 5 to Go!TM Healthy Kids Inside & Out 5 Eat FIVE fruits and veggies a day 4 Give and get FOUR compliments a day 3 Consume THREE calcium products a day 2 Limit media time to TWO hours a day 1 Get at least ONE hour of exercise a day 0 Consume ZERO sugar-sweetened drinks Go! Be healthy, inside and out! www.[facility].org/5toGo Adolescent to Adult Transition Program [facility] cares about helping you and each of our adolescents and young adults make a smooth transition to adult care. If your current doctor is a carpet floor layer apprentice, we will work with you to decide the correct age for moving your care to a doctor or other provider who takes care of adults. We suggest that this move take place before age 22. Our office policy is to prepare you to move to a doctor or other provider who takes care of adults. This includes helping you find a doctor or other provider, sending medical records, and talking about any special needs with the new doctor or other provider. If your current doctor is in family medicine, [facility] will prepare you and your family for the transition to being an adult patient. You will be able to make your own healthcare decisions and will have an adult care team that meets your personal healthcare needs. At age 18, by law, we need your agreement to discuss personal health information with your family. We understand and respect that you may want to include your family in healthcare choices and will partner with you on how and when to include your family in decisions. We will make sure you know what changes to expect. We will also strive to make sure that all care team providers know your needs. We will help you find community resources and specialty care, if needed. Having your information before you come for the first time helps us be sure we do not miss any details. If joining our practice from outside [facility], we will help you request your medical record from past doctor(s) before your first visit. We will make every effort to work with your past providers to ensure a smooth transition and experience. We are always here for you. If you have any questions or concerns, please contact your primary care team or e-mail [email or web address] Got Transition is the federally funded national resource center on health care transition (HCT). Its aim is to improve transition from pediatric to adult health care through the use of evidence-driven strategies for health career services assistant, youth, young adults, and their families. www.gottransition.org https://gottransition.org/resourc e/?vun-gkpepw-udhkibu 5 to Go!TM Healthy Kids Inside & Out 5 Eat FIVE fruits and veggies a day 4 Give and get FOUR compliments a day 3 Consume THREE calcium products a day 2 Limit media time to TWO hours a day 1 Get at least ONE hour of exercise a day 0 Consume ZERO sugar-sweetened drinks Go! Be healthy, inside and out! www.[facility].org/5toGo Adolescent to Adult Transition Program [facility] cares about helping you and each of our adolescents and young adults make a smooth transition to adult care. If your current doctor is a carpet floor layer apprentice, we will work with you to decide the correct age for moving your care to a doctor or other provider who takes care of adults. We suggest that this move take place before age 22. Our office policy is to prepare you to move to a doctor or other provider who takes care of adults. This includes helping you find a doctor or other provider, sending medical records, and talking about any special needs with the new doctor or other provider. If your current doctor is in family medicine, [facility] will prepare you and your family for the transition to being an adult patient. You will be able to make your own healthcare decisions and will have an adult care team that meets your personal healthcare needs. At age 18, by law, we need your agreement to discuss personal health information with your family. We understand and respect that you may want to include your family in healthcare choices and will partner with you on how and when to include your family in decisions. We will make sure you know what changes to expect. We will also strive to make sure that all care team providers know your needs. We will help you find community resources and specialty care, if needed. Having your information before you come for the first time helps us be sure we do not miss any details. If joining our practice from outside [facility], we will help you request your medical record from past doctor(s) before your first visit. We will make every effort to work with your past providers to ensure a smooth transition and experience. We are always here for you. If you have any questions or concerns, please contact your primary care team or e-mail Got Transition is the federally funded national resource center on health care transition (HCT). Its aim is to improve transition from pediatric to adult health care through the use of evidence-driven strategies for health career services assistant, youth, young adults, and their families. www.gottransition.org https://gottransition.org/resourc e/?kdu-bajifn-vxpmybm documented in this encounter [facility] 09-10-2023 Note HNO ID: [id number] Author: ZIYAD FARR MD Service: ? Author Type: Physician Type: Progress Notes Filed: 09/11/2023 21:11 Note Text: Nicole Lee is a 17-year-old male who presents to the office today with complaints of right otalgia. Patient was seen at an outside urgent care ([facility]) on August 29, 2023. Given a diagnosis of of right otitis media and placed on Augmentin. Patient reports compliance with the medication. Still with complaints of intermittent otalgia. No fevers are present. Patient does have a significant history of allergic rhinitis, food allergy, mild intermittent asthma and eczema treated with Dupixent. He denies active symptoms of seasonal allergic rhinitis at this time. 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), Inattentive Type PAST MEDICAL HISTORY Diagnosis Date Allergy to peanuts Concussion 12/28/14 Constipation Contact dermatitis and other eczema due to other specified agent Molluscum contagiosum 12/28/2011 PAST SURGICAL HISTORY Procedure Laterality Date CIRCUMCISION PAST SURGICAL HISTORY OF HYPOSPADIAS REPAIR ALLERGIES Allergen Reactions Cats Unknown Dogs Unknown Dust Hives Dust Mites Rash Peanuts Tree Nuts [Other] 09/10/23 0933 Pulse: 68 Resp: 16 Temp: 36.4 ?C (97.5 ?F) TempSrc: Temporal Weight: 94.9 kg (209 lb 3.2 oz) Physical examination of the head, neck, external ears, mouth and face fail to demonstrate any significant abnormality or assymetry to critical face to face observation. The salivary glands were normal. Facial motion was intact. NOSE: Examination of the nasal chamber revealed no significant abnormalities of the nasal septum, turbinates or meati with the exception of blue boggy turbinates. The mucosa was healthy and the airway was satisfactory MOUTH: Examination of the mouth included the lips, teeth, gums, hard and soft palate, tongue, floor of the mouth, and buccal mucosa were healthy to inspection and the mucosa was moist. OROPHARYNX: Examination of the oropharynx, including the soft palate, tonsillar fossa and posterior pharyngeal cortez were unremarkable and symmetrical. NECK: Inspection and palpation of the neck revealed no scars, masses crepitation or asymmetries. The thyroid was not palpable and was free of masses. EARS: The left external auditory canal is free of lesions. The left tympanic membrane is intact and the middle ear space is well aerated. Tympanogram: Type A pattern. The right external auditory canal has some cerumen at the superior aspect but I can visualize 90% of the tympanic membrane. It is clear without evidence of fluid in the middle ear space. Tympanogram: Type A pattern. ASSESSMENT/PLAN: 1. Otalgia, right - ICD9: 388.70, ICD10: H92.01 (primary diagnosis) If no significant improvement in the discomfort of the ear in the next 5 days would recommend [id number] Flonase, 2 sprays to each nostril once daily, use for 8 weeks. 2. Impacted cerumen of right ear - ICD9: 380.4, ICD10: H61.21 I spent a total of 25 minutes on the date of the service which included preparing to see the patient, [id number] patient care, completing clinical documentation, obtaining and/or reviewing separately obtained history, performing a medically appropriate examination, counseling and educating the patient/family/caregiver, and ordering medications, tests, or procedures. Follow-up prn Ziyad Farr MD [facility] Department of Pediatrics, [facility] 09-10-2023 History of Present illness Narrative Nicole Lee is a 17-year-old male who presents to the office today with complaints of right otalgia. Patient was seen at an outside urgent care ([facility]) on August 29, 2023. Given a diagnosis of of right otitis media and placed on Augmentin. Patient reports compliance with the medication. Still with complaints of intermittent otalgia. No fevers are present. Patient does have a significant history of allergic rhinitis, food allergy, mild intermittent asthma and eczema treated with Dupixent. He denies active symptoms of seasonal allergic rhinitis at this time. 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), Inattentive Type PAST MEDICAL HISTORY Diagnosis Date Allergy to peanuts Concussion 12/28/14 Constipation Contact dermatitis and other eczema due to other specified agent Molluscum contagiosum 12/28/2011 PAST SURGICAL HISTORY Procedure Laterality Date CIRCUMCISION PAST SURGICAL HISTORY OF HYPOSPADIAS REPAIR ALLERGIES Allergen Reactions Cats Unknown Dogs Unknown Dust Hives Dust Mites Rash Peanuts Tree Nuts [Other] 09/10/23 0933 Pulse: 68 Resp: 16 Temp: 36.4 C (97.5 F) TempSrc: Temporal Weight: 94.9 kg (209 lb 3.2 oz) Physical examination of the head, neck, external ears, mouth and face fail to demonstrate any significant abnormality or assymetry to critical face to face observation. The salivary glands were normal. Facial motion was intact. NOSE: Examination of the nasal chamber revealed no significant abnormalities of the nasal septum, turbinates or meati with the exception of blue boggy turbinates. The mucosa was healthy and the airway was satisfactory MOUTH: Examination of the mouth included the lips, teeth, gums, hard and soft palate, tongue, floor of the mouth, and buccal mucosa were healthy to inspection and the mucosa was moist. OROPHARYNX: Examination of the oropharynx, including the soft palate, tonsillar fossa and posterior pharyngeal cortez were unremarkable and symmetrical. NECK: Inspection and palpation of the neck revealed no scars, masses crepitation or asymmetries. The thyroid was not palpable and was free of masses. EARS: The left external auditory canal is free of lesions. The left tympanic membrane is intact and the middle ear space is well aerated. Tympanogram: Type A pattern. The right external auditory canal has some cerumen at the superior aspect but I can visualize 90% of the tympanic membrane. It is clear without evidence of fluid in the middle ear space. Tympanogram: Type A pattern. ASSESSMENT/PLAN: 1. Otalgia, right - ICD9: 388.70, ICD10: H92.01 (primary diagnosis) If no significant improvement in the discomfort of the ear in the next 5 days would recommend pxvy-npj-cwdsrqf Flonase, 2 sprays to each nostril once daily, use for 8 weeks. 2. Impacted cerumen of right ear - ICD9: 380.4, ICD10: H61.21 I spent a total of 25 minutes on the date of the service which included preparing to see the patient, qxrq-un-fbeg patient care, completing clinical documentation, obtaining and/or reviewing separately obtained history, performing a medically appropriate examination, counseling and educating the patient/family/caregiver, and ordering medications, tests, or procedures. Follow-up prn Ziyad Farr MD [facility] Department of Pediatrics, [facility] documented in this encounter [facility] 11-19-2022 Instructions Ziyad Farr MD - 11/19/2022 1:33 PM EDT Images from the original note were not included. 5 to Go!TM Healthy Kids Inside & Out 5 Eat FIVE fruits and veggies a day 4 Give and get FOUR compliments a day 3 Consume THREE calcium products a day 2 Limit media time to TWO hours a day 1 Get at least ONE hour of exercise a day 0 Consume ZERO sugar-sweetened drinks Go! Be healthy, inside and out! www.[facility].org/5toGo Adolescent to Adult Transition Program [facility] cares about helping you and each of our adolescents and young adults make a smooth transition to adult care. If your current doctor is a carpet floor layer apprentice, we will work with you to decide the correct age for moving your care to a doctor or other provider who takes care of adults. We suggest that this move take place before age 22. Our office policy is to prepare you to move to a doctor or other provider who takes care of adults. This includes helping you find a doctor or other provider, sending medical records, and talking about any special needs with the new doctor or other provider. If your current doctor is in family medicine, [facility] will prepare you and your family for the transition to being an adult patient. You will be able to make your own healthcare decisions and will have an adult care team that meets your personal healthcare needs. At age 18, by law, we need your agreement to discuss personal health information with your family. We understand and respect that you may want to include your family in healthcare choices and will partner with you on how and when to include your family in decisions. We will make sure you know what changes to expect. We will also strive to make sure that all care team providers know your needs. We will help you find community resources and specialty care, if needed. Having your information before you come for the first time helps us be sure we do not miss any details. If joining our practice from outside [facility], we will help you request your medical record from past doctor(s) before your first visit. We will make every effort to work with your past providers to ensure a smooth transition and experience. We are always here for you. If you have any questions or concerns, please contact your primary care team or e-mail Got Transition is the federally funded national resource center on health care transition (HCT). Its aim is to improve transition from pediatric to adult health care through the use of evidence-driven strategies for health career services assistant, youth, young adults, and their families. www.gottransition.org https://[employer].org/resourc e/?fky-sogctw-ifsjqjn Healthy Children Ages & Stages Texting Program [employer] is an AAP ([place] [employer]) parenting website. It is a great resource for information. They have a new Ages & Stages texting program available to parents. Fill out the information in the link below to start getting helpful tips and resources from AAP experts right to your phone. Be sure to include your child's age so they can send you age appropriate information. https://www.[employer].org/Susan verdugo/tips-tools/HealthyChildren -Texting-Program/Pages/default.as px documented in this encounter [facility] 11-06-2022 History of Present illness Narrative WELL VISIT PEDIATRIC 14-17 YRS OLD Nicole is a 16 year old who presents today for well exam accompanied by his mother. SUBJECTIVE CONCERNS: no concerns HISTORY ACTIVE PROBLEM LIST Adhd (Attention Deficit Hyperactivity Disorder), Inattentive Type - 03/10/2020 Tree Nut Allergy - 11/23/2018 Comment: Dannie Mcdonald, hazelnut Allergic Rhinitis, Cause Unspecified - 01/13/2013 Mild Intermittent Asthma Without Complication - 09/25/2012 Peanut Allergy - 12/29/2011 Atopic Dermatitis and Related Condition - 04/22/2006 PAST MEDICAL HISTORY Diagnosis Date Allergy to peanuts Concussion 12/28/14 Constipation Contact dermatitis and other eczema due to other specified agent Molluscum contagiosum 12/28/2011 PAST SURGICAL HISTORY Procedure Laterality Date CIRCUMCISION PAST SURGICAL HISTORY OF HYPOSPADIAS REPAIR ALLERGIES Allergen Reactions Cats Unknown Dogs Unknown Dust Hives Dust Mites Rash Peanuts Tree Nuts [Other] Medications: EPINEPHrine (EPIPEN 2-RENATE) 0.3 mg/0.3 mL auto-injector Injected the anterior thigh as directed for symptoms according to the allergy action plan. If used the patient must seek emergency medical care. May repeat a second dose after 5 minutes for failure to respond or worsening symptoms while awaiting EMS. Dispensed 2 twin packs with trainers albuterol HFA (PROVENTIL HFA, VENTOLIN HFA) 90 mcg/actuation inhaler Inhale 2 Puffs as instructed every 4 hours as needed for wheezing/shortness of breath. dupilumab (DUPIXENT PEN) 300 mg/2 mL pen Inject subcutaneously every 2 weeks. FAMILY HISTORY Problem Relation Age of Onset other (eczema) Mother other (eczema) Father other (hepatitis C) Maternal Grandmother Cancer Maternal Grandfather skin other (hepatitis C) Maternal Grandfather Heart Other maternal cousin congenital heart defect - down's syndrome Social History Social History Narrative Not on file Smoking Exposure: Does your child spend a significant amount of time in the care of anyone who smokes? No School: Presently in 11th grade. Any concerns regarding peer interactions? No Physical Activity: more than 1 hour of physical activity per day Screen Time totaling less than 2 hours of screen time per day. Safety: Reviewed seat belts and bike helmets Diet: -Eats 3 meals a day, 2 snacks -Typically drinks water -Eats fruits and vegetables Elimination: no concerns, normal size and consistency Dental: dental care current Sleep: -no sleep concerns Vision: No vision concerns, wears glasses, see's an eye doctor Hearing: No hearing concerns Growth: No growth concerns Screening tools reviewed and discussed with patient/nvntll-BRQ-F. Please see Patient Entered Data. OBJECTIVE Physical Exam: BP 116/72 Pulse 80 Temp 36.2 C (97.2 F) (Temporal) Resp 16 Ht 177.6 cm (5' 9.92) Wt 97.3 kg (214 lb 6.4 oz) BMI 30.83 kg/m Blood pressure percentiles are 48 % systolic and 65 % diastolic based on the 2017 AAP Clinical Practice Guideline. This reading is in the normal blood pressure range. 98 %ile (Z= 1.99) based on CDC (Boys, 2-20 Years) BMI-for-age based on BMI available as of 11/06/2022. Last BMI: Wt: 93.5 kg (206 lb 3.2 oz) (98 %, Z= 2.10)* BMI: 30.13 kg/(m^2) Last 4 Encounter Wt Readings: Date: Wt: 11/23/2021 93.5 kg (206 lb 3.2 oz) (98 %, Z= 2.10)* 08/01/2021 91.6 kg (202 lb) (98 %, Z= 2.09)* 03/08/2020 83.6 kg (184 lb 6.4 oz) (98 %, Z= 2.13)* 05/29/2019 73.9 kg (163 lb) (97 %, Z= 1.90)* Last 4 Encounter Ht Readings: Date: Ht: 11/23/2021 176.2 cm (5' 9.37) (64 %, Z= 0.35)* 03/08/2020 168.4 cm (5' 6.3) (62 %, Z= 0.30)* 11/14/2018 156 cm (5' 1.42) (49 %, Z= -0.01)* 01/15/2017 146.3 cm (4' 9.6) (61 %, Z= 0.27)* General: alert and active in no apparent distress Head: Normocephalic, atraumatic Eyes: PERRLA, EOM's intact Ears: External ears normal. Canals clear. Tympanic membranes are intact bilaterally without evidence of fluid in the middle ear space Nose/Sinuses: Nares normal. Septum midline. Mucosa normal. No drainage or sinus tenderness. Oropharynx: Tonsils are 1+. Uvula is midline and the oropharynx is symmetrical Neck: No masses and the suprasternal notch, no supraclavicular adenopathy, supple, no adenopathy Thyroid: no masses or nodules present Heart: Regular Rate and Rhythm without murmurs or clicks, femoral and radial pulses are normal.PMI normal Lungs: clear to auscultation. No wheezes or rales.Chest AP diameter normal. Abdomen: Abdomen is soft, nontender, without organomegaly or masses. Breasts: normal male exam : James V male. Testicles are descended bilaterally without evidence of hernia, hydrocele or mass Musculoskeletal: Extremities with FROM and no problems identified. Negative Tavarez forward bend test. Bilateral shoulder, elbow and wrist exams are within normal limits. Bilateral hip, knee and ankle examinations are within normal limits. Neurological: Muscle tone normal, Awake, alert and oriented x 3, Cranial nerves II-XII grossly intact, Normal age appropriate gait, muscle tone normal, muscle strength 5/5 in the upper and lower extremities bilaterally and symmetrically, rapid alternating movements smooth in the hands without evidence of dysdiadochokinesia Skin: Psoriasis on the face as well as some mild dry skin on the face. Hands with lichenification and some drying but overall his atopic dermatitis is significantly improved on the Dupixent therapy. ASSESSMENT: 17 year old Well exam ACTIVE PROBLEM LIST Atopic Dermatitis and Related Condition Peanut Allergy: Elimination of peanuts from the diet. Epinephrine prescription written today. Please consider reevaluation with the assistant product manager. Mild Intermittent Asthma Without Complication: Well controlled Allergic Rhinitis, Cause Unspecified Tree Nut Allergy: Elimination of tree nuts from his diet. Epinephrine prescription written today. Please consider reevaluation with the assistant product manager Adhd (Attention Deficit Hyperactivity Disorder), Inattentive Type PLAN: 1) Plan per orders. Office Visit on 11/06/22 MENINGOCOCCAL (MENACWY-TT) VACCINE, QUADRIVALENT (MENQUADFI) EPINEPHrine (EPIPEN 2-RENATE) 0.3 mg/0.3 mL auto-injector 2) Hearing and Vision if done at the visit was discussed and reviewed with the patient and family. 3) Questionnaires, if administered at the office today, were reviewed with the patient and family. 4) Growth curves including BMI were reviewed with the patient. Education regarding BMI, its meaning utility and limitations were discussed in the office today. If the BMI was elevated, we discussed interventions. 5) Counseling: See patient instruction section 6) Follow up every 1 year for well exam and PRN. 98 %ile (Z= 1.99) based on CDC (Boys, 2-20 Years) BMI-for-age based on BMI available as of 11/06/2022. Kambin is elevated range (BMI greater than 95th%): -Discussed how healthy eating, minimizing electronics and getting physical activity impact physical and emotional health -Avoid eating out and encouraged family meals at home Based on PHQ-A Score: 3 (recommended cut off score is 11) and interview, presentation is not consistent with depression - Adolescent anticipatory guidance discussed. - Discussed diet and safety. - Dental care discussed. - Bright Futures handout given (See Patient Instructions). - Parent/guardian was counseled [id number] by myself (the billing provider) for the following immunizations and vaccine components, including side effects: MenQuadFi. Parent/guardian consents for immunization and understands risks and benefits. A VIS sheet on each immunization was given to the parent/guardian. - Follow up in one year for routine physical. Ziyad Farr MD documented in this encounter [facility] 08-24-2022 Miscellaneous Notes [employer] calling. Requesting dermatology referral be faxed. Faxed as requested to [phone] Izabel Armenta RN documented in this encounter [facility] 06-19-2022 Miscellaneous Notes Referral entered in Epic. Savita Gómez RN Consult placed. Kiersten yLn PA-C Mother calls stating that patient has appointment scheduled for tomorrow with Dr. Deven Nelson for eczema. Ok for referral? Savita Gómez RN documented in this encounter [facility] 11-23-2021 Instructions Ziyad Farr MD - 11/23/2021 1:29 PM EDT Images from the original note were not included. 5 to Go!TM Healthy Kids Inside & Out 5 Eat FIVE fruits and veggies a day 4 Give and get FOUR compliments a day 3 Consume THREE calcium products a day 2 Limit media time to TWO hours a day 1 Get at least ONE hour of exercise a day 0 Consume ZERO sugar-sweetened drinks Go! Be healthy, inside and out! www.[facility].org/5toGo Adolescent to Adult Transition Program [facility] cares about helping you and each of our adolescents and young adults make a smooth transition to adult care. If your current doctor is a carpet floor layer apprentice, we will work with you to decide the correct age for moving your care to a doctor or other provider who takes care of adults. We suggest that this move take place before age 22. Our office policy is to prepare you to move to a doctor or other provider who takes care of adults. This includes helping you find a doctor or other provider, sending medical records, and talking about any special needs with the new doctor or other provider. If your current doctor is in family medicine, [facility] will prepare you and your family for the transition to being an adult patient. You will be able to make your own healthcare decisions and will have an adult care team that meets your personal healthcare needs. At age 18, by law, we need your agreement to discuss personal health information with your family. We understand and respect that you may want to include your family in healthcare choices and will partner with you on how and when to include your family in decisions. We will make sure you know what changes to expect. We will also strive to make sure that all care team providers know your needs. We will help you find community resources and specialty care, if needed. Having your information before you come for the first time helps us be sure we do not miss any details. If joining our practice from outside [facility], we will help you request your medical record from past doctor(s) before your first visit. We will make every effort to work with your past providers to ensure a smooth transition and experience. We are always here for you. If you have any questions or concerns, please contact your primary care team or e-mail [email or web address] Got Transition is the federally funded national resource center on health care transition (HCT). Its aim is to improve transition from pediatric to adult health care through the use of evidence-driven strategies for health career services assistant, youth, young adults, and their families. www.gottransition.org https://gottransition.org/resourc e/?cgl-qjvdye-yyalrpy Healthy Children Ages & Stages Texting Program HealthyChildren.org is an AAP ([place] [employer]) parenting website. It is a great resource for information. They have a new Ages & Stages texting program available to parents. Fill out the information in the link below to start getting helpful tips and resources from AAP experts right to your phone. Be sure to include your child's age so they can send you age appropriate information. [email or web address]-[email or web address] -Texting-Program/Pages/default.as px documented in this encounter [facility] 11-23-2021 History of Present illness Narrative WELL VISIT PEDIATRIC MALE 14-17 YRS OLD SERVICE DATE: 11/23/2021 Nicole is a 16 year old male who presents today for well exam accompanied by his mother. SUBJECTIVE CONCERNS: sunburn on back of neck HISTORY ACTIVE PROBLEM LIST Adhd (Attention Deficit Hyperactivity Disorder), Inattentive Type - 03/10/2020 Tree Nut Allergy - 11/23/2018 Comment: PistawerneroItzmond, hazelnut Allergic Rhinitis, Cause Unspecified - 01/13/2013 Mild Intermittent Asthma Without Complication - 09/25/2012 Peanut Allergy - 12/29/2011 Atopic Dermatitis and Related Condition - 04/22/2006 PAST MEDICAL HISTORY Diagnosis Date Allergy to peanuts Concussion 12/28/14 Constipation Contact dermatitis and other eczema due to other specified agent Molluscum contagiosum 12/28/2011 PAST SURGICAL HISTORY Procedure Laterality Date CIRCUMCISION PAST SURGICAL HISTORY OF HYPOSPADIAS REPAIR ALLERGIES Allergen Reactions Cats Unknown Dogs Unknown Dust Hives Dust Mites Rash Peanuts Tree Nuts [Other] Medications: EPINEPHrine (EPIPEN 2-RENATE) 0.3 mg/0.3 mL auto-injector Injected the anterior thigh as directed for symptoms according to the allergy action plan. If used the patient must seek emergency medical care. May repeat a second dose after 5 minutes for failure to respond or worsening symptoms while awaiting EMS. Dispensed 2 twin packs with trainers dupilumab (DUPIXENT PEN) 300 mg/2 mL pen Inject subcutaneously every 2 weeks. FAMILY HISTORY Problem Relation Age of Onset other (eczema) Mother other (eczema) Father other (hepatitis C) Maternal Grandmother Cancer Maternal Grandfather skin other (hepatitis C) Maternal Grandfather Heart Other maternal cousin congenital heart defect - down's syndrome Social History Social History Narrative Not on file Smoking Exposure: Does your child spend a significant amount of time in the care of anyone who smokes? No School: Grade: 10th; grades A-B. Physical Activity: more than 1 hour of physical activity per day Screen Time totaling less than 2 hours of screen time per day. Safety: Reviewed seat belts, bike helmets, internet, sunscreen and driving Diet: -Eats 2 meals per day and 2 snacks per day -Typical beverages include water -Fruits and vegetables are eaten with nearly every meal Elimination: no concerns, normal size and consistency Dental: dental care current Sleep: -no sleep concerns Screening tools reviewed and discussed with patient/[id number]-F. Please see Patient Entered Data. REVIEW OF SYSTEMS GENERAL: No fevers EYES: No vision concerns, see's an eye doctor, wears glasses ENT: No hearing concerns RESPIRATORY: Negative for cough, wheezing or respiratory distress CARDIOVASCULAR: Negative for chest pain, syncope, lightheadness or heart racing SKIN: Negative for lesions, rash, and itching ENDOCRINE: No growth concerns OBJECTIVE Physical Exam: BP 108/64 Pulse 72 Temp 36.7 C (98 F) (Temporal) Resp 16 Ht 176.2 cm (5' 9.37) Wt 93.5 kg (206 lb 3.2 oz) BMI 30.13 kg/m Blood pressure percentiles are 27 % systolic and 40 % diastolic based on the 2017 AAP Clinical Practice Guideline. This reading is in the normal blood pressure range. 98 %ile (Z= 1.98) based on CDC (Boys, 2-20 Years) BMI-for-age based on BMI available as of 11/23/2021. Last BMI: Wt: 91.6 kg (202 lb) (98 %, Z= 2.09)* BMI: 32.31 kg/(m^2) Last 4 Encounter Wt Readings: Date: Wt: 08/01/2021 91.6 kg (202 lb) (98 %, Z= 2.09)* 03/08/2020 83.6 kg (184 lb 6.4 oz) (98 %, Z= 2.13)* 05/29/2019 73.9 kg (163 lb) (97 %, Z= 1.90)* 11/14/2018 69.4 kg (153 lb) (97 %, Z= 1.85)* Last 4 Encounter Ht Readings: Date: Ht: 03/08/2020 168.4 cm (5' 6.3) (62 %, Z= 0.30)* 11/14/2018 156 cm (5' 1.42) (49 %, Z= -0.01)* 01/15/2017 146.3 cm (4' 9.6) (61 %, Z= 0.27)* 01/16/2016 141 cm (4' 7.5) (59 %, Z= 0.22)* General: alert and active in no apparent distress Head: Normocephalic, atraumatic Eyes: PERRLA, EOM's intact Ears: External ears normal. Canals clear. Tympanic membranes are intact bilaterally without evidence of fluid in the middle ear space Nose/Sinuses: Nares normal. Septum midline. Mucosa normal. No drainage or sinus tenderness. Oropharynx: Tonsils are 1+. Uvula is midline and the oropharynx is symmetrical Neck: No masses and the suprasternal notch, no supraclavicular adenopathy, supple, no adenopathy Thyroid: no masses or nodules present Heart: Regular Rate and Rhythm without murmurs or clicks, femoral and radial pulses are normal.PMI normal Lungs: clear to auscultation. No wheezes or rales.Chest AP diameter normal. Abdomen: Abdomen is soft, nontender, without organomegaly or masses. Breasts: normal male exam : James IV male. Testicles are descended bilaterally without evidence of hernia, hydrocele or mass Musculoskeletal: Extremities with FROM and no problems identified. Negative Tavarez forward bend test. Bilateral shoulder, elbow and wrist exams are within normal limits. Bilateral hip, knee and ankle examinations are within normal limits. Neurological: Muscle tone normal, Awake, alert and oriented x 3, Cranial nerves II-XII grossly intact,Normal age appropriate gait, muscle tone normal, muscle strength 5/5 in the upper and lower extremities bilaterally and symmetrically, rapid alternating movements smooth in the hands without dysdiadochokinesia Skin: Overall his eczema is well controlled. He does have lichenification of the hands and some dry skin on the upper extremities bilaterally. Antecubital and popliteal fossa are very clear today. He does have a linear erythematous peeling rash present over the posterior neck at the base. ASSESSMENT: 16 year old Well exam PLAN: 1) Plan per orders. Office Visit on 11/23/21 EPINEPHrine (EPIPEN 2-RENATE) 0.3 mg/0.3 mL auto-injector albuterol HFA (PROVENTIL HFA, VENTOLIN HFA) 90 mcg/actuation inhaler 2) Hearing and Vision if done at the visit was discussed and reviewed with the patient and family. 3) Questionnaires, if administered at the office today, were reviewed with the patient and family. 4) Growth curves including BMI were reviewed with the patient. Education regarding BMI, its meaning utility and limitations were discussed in the office today. If the BMI was elevated, we discussed interventions. 5) Counseling: See patient instruction section 6) Follow up every 1 year for well exam and PRN. 98 %ile (Z= 1.98) based on CDC (Boys, 2-20 Years) BMI-for-age based on BMI available as of 11/23/2021. Nicole is obese (BMI greater than 95th%): -Discussed how healthy eating, minimizing electronics and getting physical activity impact physical and emotional health -Avoid eating out and encouraged family meals at home Based on PHQ-A Score: 0 (recommended cut off score is 11) and interview, presentation is not consistent with depression - Adolescent anticipatory guidance discussed. - Discussed diet and safety. - Dental care discussed. - AB Group handout given (See Patient Instructions). - Parent/guardian declined immunization for COVID-19 and MenQuadFi and were counseled regarding risk. - Follow up in one year for routine physical. SIGNATURE: Ziyad Farr MD PATIENT NAME: Nicole Lee DATE: November 23, 2021 TIME: 12:50 PM documented in this encounter [facility] 12-28-2011 History of Past i llness Narrative Problem Noted Date Resolved Date Molluscum contagiosum 12/28/2011 03/10/2020 documented as of this encounter (statuses as of 11/23/2021) [facility] History of Past illness Narrative* Problem Noted Date Resolved Date Molluscum contagiosum 12/28/2011 03/10/2020 documented as of this encounter (statuses as of 06/19/2022) [facility] History of Past illness Narrative* Problem Noted Date Resolved Date Molluscum contagiosum 12/28/2011 03/10/2020 documented as of this encounter (statuses as of 08/24/2022) [facility] History of Past illness Narrative* Problem Noted Date Resolved Date Molluscum contagiosum 12/28/2011 03/10/2020 documented as of this encounter (statuses as of 11/19/2022) [facility] History of Past illness Narrative* Problem Noted Date Diagnosed Date Resolved Date Molluscum contagiosum 12/28/20112019 documented as of this encounter (statuses as of 09/12/2023) [facility] Diagnosis Encounter for routine child health examination w/o abnormal findings- Primary Routine infant or child health check [facility] Diagnosis Atopic dermatitis and related condition- Primary Other atopic dermatitis and related conditions [facility] Diagnosis Encounter for routine child health examination w/o abnormal findings- Primary Routine or child health check Encounter for immunization Need for other specified prophylactic vaccination against single bacterial disease Screening for depression [facility] Diagnosis Otalgia, right- Primary Impacted cerumen of right ear Impacted cerumen Excessive ear wax, right [facility] Diagnosis Encounter for general adult medical examination without abnormal findings- Primary Unspecified general medical examination Encounter for screening for depression Peanut allergy Allergy to peanuts 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 [facility] Diagnosis Intermittent lightheadedness- Primary Dizziness and giddiness [facility]ative[facility] Outpatient Procedure (Routine) - New Request Specialty Diagnoses / Procedures Referred By Eric t Referred To [facility] Diagnoses Intermittent lightheadedness Procedures ECG COMPLETE ECG ROUTINE ECG W/LEAST 12 LDS W/I&R Ziyad Farr MD [address] [place] [address] [facility] [place] [address] [place] [id number] Referral ID Status Reason Start Date Expiration Date Visits Requested Visits Authorized [id number] New Request Auto-Generat ed Referral 03/31/2024 03/31/2025 1 1 [facility] Reason for Referral Specialty Diagnoses / Procedures Referred By Eric joel Referred To Contact Dermatology Diagnoses Atopic dermatitis and related condition Procedures CONSULT TO DERMATOLOGY Kiersten Lyn PA-C [address] [place] [address] Referral ID Status Reason Start Date Expiration Date Visits Requested Visits Authorized [id number] Ref Not Required PCP Requested Referral 06/19/2022 06/19/2023 1 1 Summary Purpose Family History No Family History Records FoundNo Family History Records Found Advance Directives No Advanced Directives Records FoundNo Advanced Directives Records Found Additional Source Comments Source Comments (unrecognize d section and content) In the event this informatio n is protected by the Federal Confidentiality of Alcohol and Drug Abuse Patient Records regulations: The Federal rules restrict any use of the information to criminally investigate or prosecute any alcohol or drug abuse patient.[facility] the event this information is protected by the Federal Confidentiality of Alcohol and Drug Abuse Patient Records regulations: The Federal rules restrict any use of the information to criminally investigate or prosecute any alcohol or drug abuse patient.[facility] the event this information is protected by the Federal Confidentiality of Alcohol and Drug Abuse Patient Records regulations: The Federal rules restrict any use of the information to criminally investigate or prosecute any alcohol or drug abuse patient.[facility] the event this information is protected by the Federal Confidentiality of Alcohol and Drug Abuse Patient Records regulations: The Federal rules restrict any use of the information to criminally investigate or prosecute any alcohol or drug abuse patient.[facility] the event this information is protected by the Federal Confidentiality of Alcohol and Drug Abuse Patient Records regulations: The Federal rules restrict any use of the information to criminally investigate or prosecute any alcohol or drug abuse patient.[facility] the event this information is protected by the Federal Confidentiality of Alcohol and Drug Abuse Patient Records regulations: The Federal rules restrict any use of the information to criminally investigate or prosecute any alcohol or drug abuse patient.[facility] the event this information is protected by the Federal Confidentiality of Alcohol and Drug Abuse Patient Records regulations: The Federal rules restrict any use of the information to criminally investigate or prosecute any alcohol or drug abuse patient.[facility] Reason for Visit (unrecogniz ed section and content) Reason Comments Well Child 16 year Reason Comments Referral Request Reason Comments Referral Information Reason Comments Well Child Reason Comments Recheck Ears R ear - finished ludwin xicillin [facility], still having pain. Reason Comments Well Child Reason Comments Dizziness Dizziniess off and o n - patients states has been ongoing off and on for 1 week. Will become nauseated when this happens. Denies MACIEL's, fevers, syncope. Care Teams (unrecognized sec tion and content) [employer] And In Home Delivery Specialist Relationship Specialty Start Date End Date Ziyad Farr MD [address] [place] [address] PCP - General 05 [employer] In Home Delivery Specialist Relationship Specialty Start Date End Date Ziyad Farr MD [address] [place], [place] [address] PCP - General 05 Sales And In Home Delivery Specialist Relationship Specialty Start Date End Date Ziyad Farr MD [address] [place] [address] PCP - General 05 Sales And In Home Delivery Specialist Relationship Specialty Start Date End Date Ziyad Farr MD [address] [place], [place] [id number] PCP - General 05 Sales And In Home Delivery Specialist Relationship Specialty Start Date End Date Ziyad Farr MD [address] [place] [address] PCP - General 05 Sales And In Home Delivery Specialist Relationship Specialty Start Date End Date Ziyad Farr MD [address] [place], [place] [id number] PCP - General 05 Sales And In Home Delivery Specialist Relationship Specialty Start Date End Date Ziyad Farr MD [address] [facility] [place] [address] PCP - General 05 (unrecognized sect ion and content) No Status Records FoundNo Status Records Found INFORMATION SOURCE (unrecogn ized section and content) DATE CREATED AUTHOR 01/02/2024 [facility] DATE CREATED AUTHOR AUTHOR'S ORGANIZ ATION 04/02/2024 [facility] FOR RECORDS PERTAINING TO PATIENTS WHO ARE OR HAVE BEEN ENROLLED IN A CHEMICAL DEPENDENCY/SUBSTANCEABUSE PROGRAM, SOME INFORMATION MAY BE OMITTED. This clinical summary was aggregated from multiple sources. Caution should be exercised in using it in the provision of clinical care. This summary normalizes information from multiple sources, and as a consequence, information in this document may materially change the coding, format and clinical context of patient data. In addition, data may be omitted in some cases. CLINICAL DECISIONS SHOULD BE BASED ON THE PRIMARY CLINICAL RECORDS. [facility]. provides no warranty or guarantee of the accuracy or completeness of information in this document.
[2025-04-23 16:37] LABS: Hematocrit 39.9 % (40-54); Hemoglobin 14.0 g/dL (13.0-16.5); Immature Granulocytes Count 0.040 X10^3/uL (0.0-0.0); Mean Corp Hgb Conc 35.1 g/dL (32-36); Mean Corpuscular Volume 87.9 fL (80-94); Mean Platelet Vol. 10.1 fl (6.2-12.0); NRBC Flagged by Analyzer 0 % (0-5); POSITIVE DIFFERENTIAL YES; POSITIVE MORPHOLOGY YES; Platelet Count 255 K/mm3 (150-450); RBC Distribution Width CV 12.8 % (11.6-14.6); RBC Distribution Width SD 41.4 fl (35.1-43.9); Red Blood Count 4.54 M/mm3 (4.6-6.2); White Blood Count 13.9 K/mm3 (4.4-11.0)
[2025-04-23 16:44] LABS: Differential Indicated SCAN CRITERIA MET
[2025-04-23 17:52] LABS: Differential Comment SCANNED
[2025-04-23 17:56] LABS: AST(SGOT) 82 U/L (<=37); Alanine Aminotransfer ALT/SGPT 115 U/L (<=46); Albumin, Serum 4.5 g/dL (3.5-5.0); Alkaline Phosphatase 152 U/L (40-129); Anion Gap 13 (5-15); BUN 9 mg/dL (4-19); BUN/Creat Ratio 11.1 RATIO (10-20); Calcium,Total 9.5 mg/dL (7.6-11.0); Carbon Dioxide 26.0 mmol/L (21.0-32.0); Chloride 101 mmol/L (98-108); Globulin 3.4 g/dL (2.2-4.2); Glucose 98 mg/dL (70-99); Potassium 4.4 mmol/L (3.3-5.1)
== END | disposition home or self-care (01) ==
LOC: LAB 16:12
PROVIDERS: PCP Pediatrics; Referring Provider Pediatrics; Visit Provider Pediatrics
DX: R61 Generalized hyperhidrosis (principal)
CPT/HCPCS: 36415; 80053; 83036; 84439; 84443; 85025

== ENCOUNTER → 2025-05-12 | Outpatient (CLI) | payer OTHER, SELFPAY ==
[2025-05-12 13:03] LABS: AST(SGOT) 28 U/L (<=37); Alanine Aminotransfer ALT/SGPT 38 U/L (<=46); Albumin, Serum 4.7 g/dL (3.5-5.0); Alkaline Phosphatase 99 U/L (40-129); Bilirubin, Direct 0.31 mg/dL (0.00-0.30); Globulin 2.9 g/dL (2.2-4.2); T3 Total - Triiodothyronine 1.23 ng/mL (0.83-2.15)
[2025-05-15 07:07] LABS: Thyroglobulin, Serum Qt. 35.3 ng/mL (1.4-29.2); Thyroid Stim Immunoglob <0.10 IU/L (0.00-0.55)
== END | disposition home or self-care (01) ==
LOC: LAB 11:19
PROVIDERS: PCP Pediatrics; Referring Provider Pediatrics; Visit Provider Pediatrics
DX: R94.6 Abnormal results of thyroid function studies (principal); R74.8 Abnormal levels of other serum enzymes
CPT/HCPCS: 36415; 80076; 84432; 84439; 84443; 84445; 84480; 86376; 86800